=== PATIENT | male | born 1995 | race Caucasian/White ===

== ENCOUNTER 2016-12-16 01:37 | Inpatient (IN) | payer OTHER ==
[2016-12-16 01:56] LABS: Glucose,Whole Blood 317 mg/dL (75-99)
[2016-12-16] MEDS ORDERED: SODIUM CHLORIDE 0.9% 1,000 ML IV STA ×5 (01:56→05:30)
[2016-12-16] MEDS ORDERED: ONDANSETRON 4 MG/2 ML VIAL IVP STA (01:56)
--- NOTE | 2016-12-16 01:56 | ED ---
Nausea/Vomiting/Diarrhea HPI - General Chief complaint: Nausea/Vomiting/Diarrhea Stated complaint: high blood sugar Time Seen by Provider: 12/16/16 01:45 Source: patient, RN notes reviewed Mode of arrival: ambulatory Limitations: no limitations - History of Present Illness Initial comments: This is a 20-year-old male with a history of insulin-dependent diabetes who states he had a blood sugar of 529 is prior to admission had dropped to 41 at 5 PM last 98 later took some insulin felt dizzy feels as nausea vomiting he also feels like he is a fever. He denies any cough rhinorrhea or other symptoms at this time. MD complaint: nausea, vomiting, other - Related Data Home Medications Medication Instructions Recorded Confirmed INSULIN LISPRO (For Pump) [humaLOG 2 units SQ-PUMP Q1H 12/16/16 12/16/16 (For Pump)] Allergies Allergy/AdvReac Type Severity Reaction Status Date / Time No Known Allergies Allergy Verified 09/12/16 21:09 Review of Systems ROS Statement: Those systems with pertinent positive or pertinent negative responses have been documented in the HPI. ROS Other: All systems not noted in ROS Statement are negative. Past Medical History Past Medical History: Diabetes Mellitus, Pneumonia Additional Past Medical History / Comment(s): patient states he had pneumonia when he was a baby History of Any Multi-Drug Resistant Organisms: None Reported Additional Past Surgical History / Comment(s): lymph node removed when patient was 5 y/o; wisdom teeth removal Past Anesthesia/Blood Transfusion Reactions: No Reported Reaction Past Psychological History: No Psychological Hx Reported Smoking Status: Former smoker Past Alcohol Use History: None Reported Past Drug Use History: None Reported - Past Family History Mother Family Medical History: Hypertension, Thyroid Disorder Additional Family Medical History / Comment(s): depression and anxiety General Exam - General Exam Comments Initial Comments: This is a well-developed well-nourished awake alert oriented times x3 male Limitations: no limitations General appearance: alert, in no apparent distress Head exam: Present: atraumatic, normocephalic, normal inspection Eye exam: Present: normal appearance, PERRL, EOMI. Absent: scleral icterus, conjunctival injection, periorbital swelling ENT exam: Present: mucous membranes dry Neck exam: Present: normal inspection. Absent: tenderness, meningismus, lymphadenopathy Respiratory exam: Present: normal lung sounds bilaterally. Absent: respiratory distress, wheezes, rales, rhonchi, stridor Cardiovascular Exam: Present: normal rhythm, tachycardia, normal heart sounds. Absent: systolic murmur, diastolic murmur, rubs, gallop, clicks GI/Abdominal exam: Present: soft, normal bowel sounds. Absent: distended, tenderness, guarding, rebound, rigid Extremities exam: Present: normal inspection, full ROM, normal capillary refill. Absent: tenderness, pedal edema, joint swelling, calf tenderness Back exam: Present: normal inspection Neurological exam: Present: alert, oriented X3, CN II-XII intact Psychiatric exam: Present: normal affect, normal mood Skin exam: Present: warm, dry, intact, normal color. Absent: rash Course Vital Signs 12/16/16 12/16/16 12/16/16 01:41 03:00 03:58 Temperature 101.5 F H 99.4 F Pulse Rate 127 H 111 H 112 H Respiratory 20 20 18 Rate Blood Pressure 126/68 123/64 123/69 O2 Sat by Pulse 97 99 99 Oximetry 12/16/16 04:46 Temperature 98.8 F Pulse Rate 105 H Respiratory 18 Rate Blood Pressure 110/57 O2 Sat by Pulse 98 Oximetry - Reevaluation(s) Reevaluation #1: 12/16/16 04:33 The patient is feeling better blood sugar has responded to IV fluids his insulin pump is being used to control sugar this time. The lactic acid is pending. X-rays are negative for acute findings the fever is likely secondary to a viral process. Reevaluation #2: 12/16/16 05:21 Repeat lactic acid was still elevated. I did reexamine the patient is awake alert oriented 3 vital signs are stable chest lungs are clear heart is regular capillary refills less than 2 seconds peripheral pulses are equal bilaterally radial. Skin is warm and dry with normal color. Reevaluation #3: 12/16/16 05:32 Patient wants to try to use his insulin pump to control her sugar distended does seem reasonable. Medical Decision Making - Medical Decision Making Due to the patient's clinical picture was does appear to be improved but the continued elevated lactic acid patient will be admitted for continued IV fluids - Lab Data Result diagrams: 12/16/16 01:55 12/16/16 01:55 Lab Results 02/07/17 02/07/17 02/07/17 Range/Units 01:54 01:55 01:55 WBC 15.1 H (4.0-11.0) k/uL RBC 7.62 H (4.30-5.90) m/uL Hgb 14.4 (13.0-17.5) gm/dL Hct 46.9 (39.0-53.0) % MCV 60.8 L (80.0-100.0) fL MCH 18.7 L (25.0-35.0) pg MCHC 30.8 L (31.0-37.0) g/dL RDW 14.7 (11.5-15.5) % Plt Count 305 (150-450) k/uL Neutrophils % 93 % Lymphocytes % 3 % Monocytes % 2 % Eosinophils % 2 % Basophils % 0 % Neutrophils # 14.0 H (1.3-7.7) k/uL Lymphocytes # 0.5 L (1.0-4.8) k/uL Monocytes # 0.3 (0-1.0) k/uL Eosinophils # 0.2 (0-0.7) k/uL Basophils # 0.0 (0-0.2) k/uL Hypochromasia Slight Microcytosis Marked Sodium 141 (137-145) mmol/L Potassium 4.4 (3.5-5.1) mmol/L Chloride 101 (98-107) mmol/L Carbon Dioxide 20 L (22-30) mmol/L Anion Gap 20 mmol/L BUN 13 (9-20) mg/dL Creatinine 0.70 (0.66-1.25) mg/dL Est GFR (MDRD) Af Amer >60 (>60 ml/min/1.73 sqM) Est GFR (MDRD) Non-Af >60 (>60 ml/min/1.73 sqM) Glucose 326 H (74-99) mg/dL POC Glucose (mg/dL) 317 H (75-99) mg/dL POC Glu Concrete Foreman ID AbranRaghavendra lu Plasma Lactic Acid Kody (0.7-2.0) mmol/L Calcium 9.8 (8.4-10.2) mg/dL Total Bilirubin 2.1 H (0.2-1.3) mg/dL AST 39 (17-59) U/L ALT 24 (21-72) U/L Alkaline Phosphatase 88 (38-126) U/L Total Protein 7.8 (6.3-8.2) g/dL Albumin 4.6 (3.5-5.0) g/dL Amylase 41 (30-110) U/L Lipase <10 L (23-300) U/L Urine Color Urine Appearance (Clear) Urine pH (5.0-8.0) Ur Specific [place] (1.001-1.035) Urine Protein (Negative) Urine Glucose (UA) (Negative) Urine Ketones (Negative) Urine Blood (Negative) Urine Nitrate (Negative) Urine Bilirubin (Negative) Urine Urobilinogen (<2.0) mg/dL Ur Leukocyte Esterase (Negative) Influenza Type A RNA (Not Detectd) Influenza Type B (PCR) (Not Detectd) 12/16/16 12/16/16 12/16/16 Range/Units 01:55 01:55 02:07 WBC (4.0-11.0) k/uL RBC (4.30-5.90) m/uL Hgb (13.0-17.5) gm/dL Hct (39.0-53.0) % MCV (80.0-100.0) fL MCH (25.0-35.0) pg MCHC (31.0-37.0) g/dL RDW (11.5-15.5) % Plt Count (150-450) k/uL Neutrophils % % Lymphocytes % % Monocytes % % Eosinophils % % Basophils % % Neutrophils # (1.3-7.7) k/uL Lymphocytes # (1.0-4.8) k/uL Monocytes # (0-1.0) k/uL Eosinophils # (0-0.7) k/uL Basophils # (0-0.2) k/uL Hypochromasia Microcytosis Sodium (137-145) mmol/L Potassium (3.5-5.1) mmol/L Chloride (98-107) mmol/L Carbon Dioxide (22-30) mmol/L Anion Gap mmol/L BUN (9-20) mg/dL Creatinine (0.66-1.25) mg/dL Est GFR (MDRD) Af Amer (>60 ml/min/1.73 sqM) Est GFR (MDRD) Non-Af (>60 ml/min/1.73 sqM) Glucose (74-99) mg/dL POC Glucose (mg/dL) (75-99) mg/dL POC Glu Concrete Foreman ID Plasma Lactic Acid Kody 5.7 H* (0.7-2.0) mmol/L Calcium (8.4-10.2) mg/dL Total Bilirubin (0.2-1.3) mg/dL AST (17-59) U/L ALT (21-72) U/L Alkaline Phosphatase (38-126) U/L Total Protein (6.3-8.2) g/dL Albumin (3.5-5.0) g/dL Amylase (30-110) U/L Lipase (23-300) U/L Urine Color Light Yellow Urine Appearance Clear (Clear) Urine pH 5.5 (5.0-8.0) Ur Specific [place] 1.029 (1.001-1.035) Urine Protein Negative (Negative) Urine Glucose (UA) 4+ H (Negative) Urine Ketones 3+ H (Negative) Urine Blood Negative (Negative) Urine Nitrate Negative (Negative) Urine Bilirubin Negative (Negative) Urine Urobilinogen <2.0 (<2.0) mg/dL Ur Leukocyte Esterase Negative (Negative) Influenza Type A RNA Not Detected (Not Detectd) Influenza Type B (PCR) Not Detected (Not Detectd) 12/16/16 12/16/16 12/16/16 Range/Units 02:45 03:57 04:35 WBC (4.0-11.0) k/uL RBC (4.30-5.90) m/uL Hgb (13.0-17.5) gm/dL Hct (39.0-53.0) % MCV (80.0-100.0) fL MCH (25.0-35.0) pg MCHC (31.0-37.0) g/dL RDW (11.5-15.5) % Plt Count (150-450) k/uL Neutrophils % % Lymphocytes % % Monocytes % % Eosinophils % % Basophils % % Neutrophils # (1.3-7.7) k/uL Lymphocytes # (1.0-4.8) k/uL Monocytes # (0-1.0) k/uL Eosinophils # (0-0.7) k/uL Basophils # (0-0.2) k/uL Hypochromasia Microcytosis Sodium (137-145) mmol/L Potassium (3.5-5.1) mmol/L Chloride (98-107) mmol/L Carbon Dioxide (22-30) mmol/L Anion Gap mmol/L BUN (9-20) mg/dL Creatinine (0.66-1.25) mg/dL Est GFR (MDRD) Af Amer (>60 ml/min/1.73 sqM) Est GFR (MDRD) Non-Af (>60 ml/min/1.73 sqM) Glucose (74-99) mg/dL POC Glucose (mg/dL) 267 H 298 H (75-99) mg/dL POC Glu Concrete Foreman ID Raghavendra Munoz Stephanie Plasma Lactic Acid Kody 4.9 H* (0.7-2.0) mmol/L Calcium (8.4-10.2) mg/dL Total Bilirubin (0.2-1.3) mg/dL AST (17-59) U/L ALT (21-72) U/L Alkaline Phosphatase (38-126) U/L Total Protein (6.3-8.2) g/dL Albumin (3.5-5.0) g/dL Amylase (30-110) U/L Lipase (23-300) U/L Urine Color Urine Appearance (Clear) Urine pH (5.0-8.0) Ur Specific [place] (1.001-1.035) Urine Protein (Negative) Urine Glucose (UA) (Negative) Urine Ketones (Negative) Urine Blood (Negative) Urine Nitrate (Negative) Urine Bilirubin (Negative) Urine Urobilinogen (<2.0) mg/dL Ur Leukocyte Esterase (Negative) Influenza Type A RNA (Not Detectd) Influenza Type B (PCR) (Not Detectd) 12/16/16 Range/Units 04:39 WBC (4.0-11.0) k/uL RBC (4.30-5.90) m/uL Hgb (13.0-17.5) gm/dL Hct (39.0-53.0) % MCV (80.0-100.0) fL MCH (25.0-35.0) pg MCHC (31.0-37.0) g/dL RDW (11.5-15.5) % Plt Count (150-450) k/uL Neutrophils % % Lymphocytes % % Monocytes % % Eosinophils % % Basophils % % Neutrophils # (1.3-7.7) k/uL Lymphocytes # (1.0-4.8) k/uL Monocytes # (0-1.0) k/uL Eosinophils # (0-0.7) k/uL Basophils # (0-0.2) k/uL Hypochromasia Microcytosis Sodium (137-145) mmol/L Potassium (3.5-5.1) mmol/L Chloride (98-107) mmol/L Carbon Dioxide (22-30) mmol/L Anion Gap mmol/L BUN (9-20) mg/dL Creatinine (0.66-1.25) mg/dL Est GFR (MDRD) Af Amer (>60 ml/min/1.73 sqM) Est GFR (MDRD) Non-Af (>60 ml/min/1.73 sqM) Glucose (74-99) mg/dL POC Glucose (mg/dL) 238 H (75-99) mg/dL POC Glu Concrete Foreman ID Nayeli Tamez Plasma Lactic Acid Kody (0.7-2.0) mmol/L Calcium (8.4-10.2) mg/dL Total Bilirubin (0.2-1.3) mg/dL AST (17-59) U/L ALT (21-72) U/L Alkaline Phosphatase (38-126) U/L Total Protein (6.3-8.2) g/dL Albumin (3.5-5.0) g/dL Amylase (30-110) U/L Lipase (23-300) U/L Urine Color Urine Appearance (Clear) Urine pH (5.0-8.0) Ur Specific [place] (1.001-1.035) Urine Protein (Negative) Urine Glucose (UA) (Negative) Urine Ketones (Negative) Urine Blood (Negative) Urine Nitrate (Negative) Urine Bilirubin (Negative) Urine Urobilinogen (<2.0) mg/dL Ur Leukocyte Esterase (Negative) Influenza Type A RNA (Not Detectd) Influenza Type B (PCR) (Not Detectd) - Radiology Data Radiology results: report reviewed (X-ray show no acute findings.), image reviewed Disposition Clinical Impression: Uncontrolled diabetes mellitus, Sepsis, Fever of unknown origin (FUO), Leukocytosis, Diabetic ketoacidosis Disposition: ADMITTED IP TO THIS HOSP Condition: Stable Referrals: Radha Dale MD [Primary Care Provider] - 1-2 days
[2016-12-16 02:03] LABS: Basophils % (A) 0 %; CHCM 31.4; Eosinophils # (A) 0.2 k/uL (0-0.7); Eosinophils % (A) 2 %; HCT 46.9 % (39.0-53.0); HDW 2.96; HGB 14.4 gm/dL (13.0-17.5); Hypochromasia Slight; Luc # (Auto) 0.06; Luc % (Auto) 0; Lymphocytes # (A) 0.5 k/uL (1.0-4.8); Lymphocytes % (A) 3 %; MCH 18.7 pg (25.0-35.0); MCHC 30.8 g/dL (31.0-37.0); MCV 60.8 fL (80.0-100.0); Microcytosis Marked; Monocytes # (A) 0.3 k/uL (0-1.0); Monocytes % (A) 2 %; Neutrophils % (A) 93 %; RDW 14.7 % (11.5-15.5); WBC 15.1 k/uL (4.0-11.0); WBC (Perox) 15.15
[2016-12-16] MEDS ORDERED: ACETAMINOPHEN TAB 500 MG TAB PO STA (02:12)
[2016-12-16 02:17] LABS: Appearance,Urine Clear (Clear); Bilirubin,Urine Negative (Negative); Glucose,Urine (UA) 4+ (Negative); Leukocyte Esterase,Urine Negative (Negative); Nitrite,Urine Negative (Negative); PH, Urine 5.5 (5.0-8.0); Protein,Urine Negative (Negative); Specific Gravity,Urine 1.029 (1.001-1.035); UA Billing (MACRO vs. MICRO) CHEM; Urobilinogen,Urine <2.0 mg/dL (<2.0)
[2016-12-16 02:19] LABS: ALT 24 U/L (21-72); AST 39 U/L (17-59); Alkaline Phosphatase 88 U/L (38-126); Amylase 41 U/L (30-110); Anion Gap 20 mmol/L; Blood Urea Nitrogen 13 mg/dL (9-20); Calcium 9.8 mg/dL (8.4-10.2); Carbon Dioxide 20 mmol/L (22-30); Chloride 101 mmol/L (98-107); Glucose 326 mg/dL (74-99); Non-African American GFR(MDRD) >60 (>60 ml/min/1.73 sqM); Potassium 4.4 mmol/L (3.5-5.1); Sodium 141 mmol/L (137-145); Total Bilirubin 2.1 mg/dL (0.2-1.3); Total Protein 7.8 g/dL (6.3-8.2)
[2016-12-16 02:21] LABS: RBC 7.62 m/uL (4.30-5.90)
[2016-12-16 02:23] LABS: Ketones,Urine 3+ (Negative)
[2016-12-16] MEDS ORDERED: INSULIN REGULAR 100 UNIT/ML VIAL IV ONE (02:37)
--- NOTE | 2016-12-16 02:51 | XR ---
EXAMINATION TYPE: XR chest 2V DATE OF EXAM: 12/16/2016 2:45 AM COMPARISON: 12/09/2014 HISTORY: High blood sugar. Chest pain TECHNIQUE: Frontal and lateral views of the chest are obtained. FINDINGS: Heart and mediastinum are normal. Lungs are clear. Diaphragm is normal. Bony thorax and so ft tissues appear normal. IMPRESSION: Normal chest. No change.
--- NOTE | 2016-12-16 02:52 | XR ---
EXAMINATION TYPE: XR KUB DATE OF EXAM: 12/16/2016 2:45 AM COMPARISON: 09/10/2006 HISTORY: Abdominal pain TECHNIQUE: 2 views FINDINGS: Bowel gas pattern is normal. There is no sign of intestinal obstruction or pneumoperitoneum . Fecal pattern is normal. There is no sign of a mass. There are no pathologic calcifications over th e kidneys. Lung bases are clear. IMPRESSION: Nonacute abdomen. No adverse change compared to old exam.
[2016-12-16 03:08] LABS: Glucose,Whole Blood 267 mg/dL (75-99)
[2016-12-16 03:58] LABS: Glucose,Whole Blood 298 mg/dL (75-99)
[2016-12-16 04:41] LABS: Glucose,Whole Blood 238 mg/dL (75-99)
[2016-12-16 06:10] LABS: Glucose,Whole Blood 172 mg/dL (75-99)
[2016-12-16] MEDS: SODIUM CHLORIDE 0.9% 1,000 ML IV SCH ×3 (06:23→18:12)
[2016-12-16] MEDS: INSULIN LISPRO (For Pump) 100 UNIT/ML VIAL SQ-PUMP SCH ×9 (07:38→13:27)
[2016-12-16] MEDS: PANTOPRAZOLE 40 MG/10 ML VIAL IV SCH (08:36)
[2016-12-16] MEDS: INSULIN LISPRO (humaLOG) 300 UNIT/3 ML VIAL SQ SCH ×4 (08:46→23:04)
[2016-12-16 08:54] LABS: Basophils % (A) 0 %; CH 19.5; CHCM 31.8; Eosinophils # (A) 0.2 k/uL (0-0.7); Eosinophils % (A) 2 %; HCT 41.1 % (39.0-53.0); HDW 3.06; HGB 12.4 gm/dL (13.0-17.5); Hypochromasia Slight; Immature Gran Flag Slight; Luc # (Auto) 0.06; Luc % (Auto) 1; Lymphocytes # (A) 0.6 k/uL (1.0-4.8); Lymphocytes % (A) 6 %; MCH 18.6 pg (25.0-35.0); MCHC 30.1 g/dL (31.0-37.0); MCV 61.7 fL (80.0-100.0); Mean Platelet Volume 6.7; Microcytosis Marked; Monocytes # (A) 0.3 k/uL (0-1.0); Monocytes % (A) 3 %; Neutrophils % (A) 88 %; RBC 6.66 m/uL (4.30-5.90); RDW 15.2 % (11.5-15.5); WBC 10.1 k/uL (4.0-11.0)
[2016-12-16 08:58] LABS: Glucose,Whole Blood 172 mg/dL (75-99)
[2016-12-16 09:15] LABS: Manual Review Performed
[2016-12-16 09:16] LABS: Hemoglobin A1C 12.1 % (4.2-6.1)
[2016-12-16 11:59] LABS: Glucose,Whole Blood 125 mg/dL (75-99)
[2016-12-16 12:02] LABS: Potassium 4.2 mmol/L (3.5-5.1)
[2016-12-16] MEDS ORDERED: INSPUCOR MISCELLANE PRN (12:51)
[2016-12-16] MEDS ORDERED: INSULIN PUMP BASAL RATES 1 EACH MISC MISCELLANE PRN (12:51)
[2016-12-16] MEDS ORDERED: INSULIN LISPRO (humaLOG) 300 UNIT/3 ML VIAL SQ PRN (12:51)
[2016-12-16] MEDS ORDERED: INSULIN PUMP TARGET GLUCOSE 1 EACH MISC MISCELLANE PRN (12:51)
[2016-12-16] MEDS ORDERED: INSULIN PUMP ACTIVE INSULIN 1 EACH MISC MISCELLANE PRN (12:51)
[2016-12-16 14:00] VITALS: BMI 25.2
[2016-12-16 14:22] LABS: Glucose,Whole Blood 144 mg/dL (75-99)
[2016-12-16] MEDS ORDERED: ACETAMINOPHEN TAB 325 MG TAB PO PRN (15:20)
--- NOTE | 2016-12-16 16:30 | P.HPIM ---
History of Present Illness H&P Date: 12/16/16 20-year-old gentleman with type 1 diabetes currently on insulin pump comes in the hospital with complains of generalized fatigue. Patient apparently noted to have a low blood sugar around 40 the day prior to admission. Patient stopped his basal dose of insulin on the pump. Patient thereafter has dinner however was not feeling his usual self and hence came in to the hospital. Patient was noted to have a low glucose level in the 400s initially. Patient was also incidentally noted to have a fever of 101.1 denies having any recent exposure to sick contacts. In the ER a chest and abdominal x-ray were negative for any acute processes. CBC did not reveal any elevated white count. During the time of my examination. Patient is symptom-free. States that he does not have any complaints at this time. Denies any chest pain, nausea, vomiting, diarrhea. His only complaint is just generalized weakness. Influenza PCR has been negative on this admission. pt was noted to have elevated lactic acid incidentally at 5.9 which is improved since then. However patient denies having any abdominal complaints. Review of Systems All systems: negative (Noted in HPI) Past Medical History Past Medical History: Diabetes Mellitus, Pneumonia Additional Past Medical History / Comment(s): IDDM type I-insulin pump, DKA, pt states he is going to be worked up for possible thyroid problem, pneumonia as an infant. History of Any Multi-Drug Resistant Organisms: None Reported Additional Past Surgical History / Comment(s): R neck lymph node removed when patient was 5 y/o; wisdom teeth removal Past Anesthesia/Blood Transfusion Reactions: No Reported Reaction Past Psychological History: No Psychological Hx Reported Additional Psychological History / Comment(s): Pt resides with his girlfriend and 2 month old son. He is independent. Smoking Status: Never smoker Past Alcohol Use History: Rare Past Drug Use History: None Reported - Past Family History Father History Unknown: Yes Mother Family Medical History: Hypertension, Thyroid Disorder Additional Family Medical History / Comment(s): depression and anxiety Medications and Allergies Home Medications Medication Instructions Recorded Confirmed Type INSULIN LISPRO (For Pump) [humaLOG 0.01 units SQ-PUMP CONTINUOUS 12/16/16 History (For Pump)] Allergies Allergy/AdvReac Type Severity Reaction Status Date / Time No Known Allergies Allergy Verified 12/16/16 07:33 Physical Exam Vitals: Vital Signs Temp Pulse Pulse Resp BP BP Pulse Ox 12/16/16 15:24 101 F H 119 H 16 120/57 97 12/16/16 12:00 99.2 F 95 16 120/62 98 12/16/16 08:27 99.4 F 103 H 16 103/57 98 12/16/16 06:01 98.4 F 101 H 18 114/65 98 Intake and Output 12/16/16 12/16/16 12/16/16 06:59 14:59 22:59 Intake Total 200 Balance 200 Intake: Oral 200 Other: # Voids 0 Weight 84.368 kg Patient Weight 12/17/16 06:59 Weight 84.368 kg Physical exam Gen. appearance oriented 3 in no distress Neck is supple no JVD Lungs good air entry clear to auscultation no rhonchi or wheezing Heart S1-S2 heard regular rate and rhythm no murmurs appreciated Abdomen is soft nontender no organomegaly bowel sounds are intact Neurologically cranial nerves II-12 grossly intact no focal motor or sensory deficits noted Skin no abnormalities appreciated Results CBC & Chem 7: 12/16/16 08:44 12/16/16 11:32 Labs: Abnormal Lab Results - Last 24 Hours (Table) 12/16/16 12/16/16 12/16/16 Range/Units 06:09 08:44 08:56 RBC 6.66 H (4.30-5.90) m/uL Hgb 12.4 L (13.0-17.5) gm/dL MCV 61.7 L (80.0-100.0) fL MCH 18.6 L (25.0-35.0) pg MCHC 30.1 L (31.0-37.0) g/dL Neutrophils # 9.0 H (1.3-7.7) k/uL Lymphocytes # 0.6 L (1.0-4.8) k/uL POC Glucose (mg/dL) 172 H 172 H (75-99) mg/dL 12/16/16 12/16/16 Range/Units 11:56 14:20 RBC (4.30-5.90) m/uL Hgb (13.0-17.5) gm/dL MCV (80.0-100.0) fL MCH (25.0-35.0) pg MCHC (31.0-37.0) g/dL Neutrophils # (1.3-7.7) k/uL Lymphocytes # (1.0-4.8) k/uL POC Glucose (mg/dL) 125 H 144 H (75-99) mg/dL Thrombosis Risk Factor Assmnt - Choose All That Apply Any of the Below Risk Factors Present?: Yes Each Factor Represents 1 point: Obesity (BMI >25) Other Risk Factors: No Other congenital or acquired thrombophilia - If yes, enter type in comment: No Thrombosis Risk Factor Assessment Total Risk Factor Score: 1 Thrombosis Risk Factor Assessment Level: Low Risk Assessment and Plan Plan: #1 sepsis unknown etiology #2 diabetes mellitus type 1 Plan Patient has been probably volume resuscitated. Testing including influenza and heterophile antibody are negative. Patient will be monitored for another 24 hours patient is to continue his basal insulin rate of 1.6 units per hour. Patient does carb count with 1 unit for every 27 g. Patient's A1c is high however states that he was out of his insulin supplies until 3-4 weeks ago. 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 Improved. Patient will be maintained on Rocephin however I do not see any infectious etiology at this time. Etiology of lactic acidosis undetermined patient does not appear to have any bowel necrosis. In all likelihood it could be severe dehydration from a viral illness.
[2016-12-16 17:02] LABS: Glucose,Whole Blood 197 mg/dL (75-99)
[2016-12-16] MEDS: INSULIN PUMP MEAL BOLUS 1 UNIT MISC MISCELLANE SCH (18:12)
[2016-12-16] MEDS ORDERED: IBUPROFEN 600 MG TAB PO PRN (20:52)
[2016-12-16] MEDS ORDERED: HYDROcodone/APAP 5-325MG 1 EACH TAB PO PRN (20:53)
[2016-12-16 21:03] LABS: Glucose,Whole Blood 93 mg/dL (75-99)
[2016-12-17] MEDS: SODIUM CHLORIDE 0.9% 1,000 ML IV SCH ×3 (00:21→16:10)
[2016-12-17] MEDS: INSULIN PUMP MEAL BOLUS 1 UNIT MISC MISCELLANE SCH ×4 (02:00→12:39)
[2016-12-17 02:09] LABS: Glucose,Whole Blood 266 mg/dL (75-99)
[2016-12-17 04:25] LABS: Glucose,Whole Blood 316 mg/dL (75-99)
[2016-12-17 06:23] LABS: Glucose,Whole Blood 247 mg/dL (75-99)
[2016-12-17 06:58] LABS: Basophils % (A) 0 %; CH 18.8; Eosinophils # (A) 0.3 k/uL (0-0.7); Eosinophils % (A) 4 %; HCT 42.7 % (39.0-53.0); HDW 2.96; HGB 12.5 gm/dL (13.0-17.5); Hypochromasia Marked; Luc # (Auto) 0.22; Luc % (Auto) 3; Lymphocytes # (A) 1.7 k/uL (1.0-4.8); Lymphocytes % (A) 23 %; MCH 18.5 pg (25.0-35.0); MCHC 29.3 g/dL (31.0-37.0); Mean Platelet Volume 5.7; Microcytosis Marked; Monocytes # (A) 0.6 k/uL (0-1.0); Monocytes % (A) 8 %; Neutrophils # (A) 4.8 k/uL (1.3-7.7); Neutrophils % (A) 63 %; RBC 6.78 m/uL (4.30-5.90); WBC 7.6 k/uL (4.0-11.0); WBC (Perox) 8.41
[2016-12-17 07:29] LABS: ALT 28 U/L (21-72); AST 17 U/L (17-59); Alkaline Phosphatase 77 U/L (38-126); Anion Gap 7 mmol/L; Blood Urea Nitrogen 11 mg/dL (9-20); Calcium 8.4 mg/dL (8.4-10.2); Carbon Dioxide 25 mmol/L (22-30); Chloride 106 mmol/L (98-107); Glucose 273 mg/dL (74-99); Non-African American GFR(MDRD) >60 (>60 ml/min/1.73 sqM); Potassium 4.3 mmol/L (3.5-5.1); Sodium 138 mmol/L (137-145); Total Bilirubin 0.7 mg/dL (0.2-1.3); Total Protein 5.6 g/dL (6.3-8.2)
[2016-12-17] MEDS: INSULIN LISPRO (humaLOG) 300 UNIT/3 ML VIAL SQ SCH ×2 (07:40→13:19)
[2016-12-17] MEDS: PANTOPRAZOLE 40 MG/10 ML VIAL IV SCH (08:13)
[2016-12-17 12:01] LABS: Glucose,Whole Blood 180 mg/dL (75-99)
[2016-12-17 12:49] VITALS: BP 134/91; PULSE 83; RESP 16; TEMP 97
--- NOTE | 2016-12-17 17:02 | P.DS ---
Providers Date of admission: 12/16/16 05:34 Attending physician: Lyn Neves Primary care physician: Radha Dale [facility] Course: 20-year-old gentleman with type 1 diabetes currently on insulin pump comes in the hospital with complains of generalized fatigue. Patient apparently noted to have a low blood sugar around 40 the day prior to admission. Patient stopped his basal dose of insulin on the pump. Patient thereafter has dinner however was not feeling his usual self and hence came in to the hospital. Patient was noted to have a low glucose level in the 400s initially. Patient was also incidentally noted to have a fever of 101.1 denies having any recent exposure to sick contacts. In the ER a chest and abdominal x-ray were negative for any acute processes. CBC did not reveal any elevated white count. During the time of my examination. Patient is symptom-free. States that he does not have any complaints at this time. Denies any chest pain, nausea, vomiting, diarrhea. His only complaint is just generalized weakness. Influenza PCR has been negative on this admission. pt was noted to have elevated lactic acid incidentally at 5.9 which is improved since then. However patient denies having any abdominal complaints. Patient was given IV fluids. Patient was maintained on his home regimen of insulin pump with a home basal dose of 1.6 units per hour. Patient's repeat labs has improved significantly. #1 mild DKA likely secondary to viral syndrome with fever on admission. 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 Physical exam Gen. appearance oriented 3 in no distress Neck is supple no JVD Lungs good air entry clear to auscultation no rhonchi or wheezing Heart S1-S2 heard regular rate and rhythm no murmurs appreciated Abdomen is soft nontender no organomegaly bowel sounds are intact Neurologically cranial nerves II-12 grossly intact no focal motor or sensory deficits noted Skin no abnormalities appreciated Patient Condition at Discharge: Stable Plan - Discharge Summary Discharge Medication List INSULIN LISPRO (For Pump) [humaLOG (For Pump)] 0.01 units SQ-PUMP CONTINUOUS 05/25 [History] Follow up Appointment(s)/Referral(s): Radha Dale MD [Primary Care Provider] - 12/19/16 11:30 am Patient Instructions/Handouts: Sepsis (GEN)
[2016-12-17 17:08] LABS: Glucose,Whole Blood 147 mg/dL (75-99)
[2016-12-18] MEDS ORDERED: PANTOPRAZOLE 40 MG TABLET PO SCH (07:30)
== END 2016-12-17 18:04 | disposition home or self-care (01) | DRG 639 ==
LOC: EC 01:37 → 6SEL 05:34
PROVIDERS: ADMIT Internal Medicine; ATTEND Internal Medicine
DX: E10.10 Type 1 diabetes mellitus with ketoacidosis without coma (principal); E86.0 Dehydration; B34.9 Viral infection, unspecified; Z79.4 Long term (current) use of insulin; Z82.49 Family history of ischemic heart disease and other diseases of the circulatory system; Z87.891 Personal history of nicotine dependence; Z96.41 Presence of insulin pump (external) (internal)
CPT/HCPCS: 36415; 71020; 74000; 80051; 80053; 81003; 82009; 82150; 82533; 83036; 83605; 83690; 84443; 85025; 85379; 86308; 87040; 87086; 87502; 99285

== ENCOUNTER 2017-04-25 19:38 | Emergency (ER) | payer OTHER ==
[2017-04-25 19:46] VITALS: RESP 18
[2017-04-25 19:46] LABS: Glucose,Whole Blood 457 mg/dL (75-99)
[2017-04-25] MEDS ORDERED: SODIUM CHLORIDE 0.9% 1,000 ML IV STA (20:16)
--- NOTE | 2017-04-25 20:21 | ED ---
General Adult HPI - General Chief complaint: Recheck/Abnormal Lab/Rx Stated complaint: Hypoglycemia Time Seen by Provider: 04/25/17 20:11 Source: patient Mode of arrival: ambulatory Limitations: no limitations - History of Present Illness Initial comments: 21-year-old male history of insulin-dependent diabetes for 9 years currently on an insulin pump presents with elevated sugar to 519 and chest discomfort states it is more sharp pain began 2 days ago under the right arm today in the anterior chest no cough no phlegm no pressure in the chest no earache sore throat. His last A1c was quite high at 11. No history of retinopathy performed uropathy or renal problems. No history of asthma heart disease seizures stroke or other health issues - Related Data Home Medications Medication Instructions Recorded Confirmed INSULIN LISPRO (For Pump) [humaLOG 0.01 units SQ-PUMP CONTINUOUS 12/16/16 (For Pump)] Previous Rx's Medication Instructions Recorded Azithromycin [Zithromax] 500 mg PO DAILY #5 tab 04/25/17 Allergies Allergy/AdvReac Type Severity Reaction Status Date / Time No Known Allergies Allergy Verified 04/25/17 20:11 Review of Systems ROS Statement: Those systems with pertinent positive or pertinent negative responses have been documented in the HPI. ROS Other: All systems not noted in ROS Statement are negative. Constitutional: Reports: fever Eyes: Denies: eye pain ENT: Denies: ear pain, throat pain Respiratory: Denies: cough Cardiovascular: Denies: chest pain Endocrine: Denies: fatigue Gastrointestinal: Denies: abdominal pain, nausea, vomiting, diarrhea Genitourinary: Denies: urgency, dysuria, frequency Skin: Denies: rash Psychiatric: Denies: anxiety, depression Hematological/Lymphatic: Denies: easy bleeding, easy bruising Past Medical History Past Medical History: Diabetes Mellitus, Pneumonia Additional Past Medical History / Comment(s): IDDM type I-insulin pump, DKA, pt states he is going to be worked up for possible thyroid problem, pneumonia as an infant. History of Any Multi-Drug Resistant Organisms: None Reported Additional Past Surgical History / Comment(s): R neck lymph node removed when patient was 5 y/o; wisdom teeth removal Past Anesthesia/Blood Transfusion Reactions: No Reported Reaction Past Psychological History: No Psychological Hx Reported Smoking Status: Never smoker Past Alcohol Use History: Rare Past Drug Use History: None Reported - Past Family History Father History Unknown: Yes Mother Family Medical History: Hypertension, Thyroid Disorder Additional Family Medical History / Comment(s): depression and anxiety General Exam Limitations: no limitations General appearance: alert, in no apparent distress Head exam: Present: atraumatic Eye exam: Present: PERRL, EOMI ENT exam: Present: normal oropharynx, mucous membranes moist, TM's normal bilaterally Respiratory exam: Present: normal lung sounds bilaterally Cardiovascular Exam: Present: regular rate, normal heart sounds GI/Abdominal exam: Present: soft, normal bowel sounds Neurological exam: Present: alert, CN II-XII intact Psychiatric exam: Present: normal affect, normal mood Skin exam: Present: warm, dry Course Vital Signs 04/25/17 19:40 Temperature 100.9 F H Pulse Rate 112 H Respiratory 18 Rate Blood Pressure 136/83 O2 Sat by Pulse 97 Oximetry Medical Decision Making - Medical Decision Making Patient has a fever mildly elevated white white count of 12, some chest pain chest x-rays read by radiology as negative to me there looks like it might be a very early left infiltrate we'll treat as early pneumonia give Rocephin and sent home on Zithromax 500 mg for 5 days follow-up on Thursday with his doctor Carlos A Crouch and given extra 5 units via his pump for 378 blood sugar, he would recheck it in 2 hours. If he starts persistent vomiting can control the temperatures were stationed come back to ER. - Lab Data Result diagrams: 04/25/17 20:45 04/25/17 20:45 Lab Results 04/25/17 04/25/17 04/25/17 Range/Units 19:42 20:45 20:45 WBC 12.4 H (3.8-10.6) k/uL RBC 7.56 H (4.30-5.90) m/uL Hgb 14.7 (13.0-17.5) gm/dL Hct 44.6 (39.0-53.0) % MCV 59.0 L (80.0-100.0) fL MCH 19.5 L (25.0-35.0) pg MCHC 33.1 (31.0-37.0) g/dL RDW 14.0 (11.5-15.5) % Plt Count 247 (150-450) k/uL Neutrophils % 86 % Lymphocytes % 8 % Monocytes % 4 % Eosinophils % 1 % Basophils % 0 % Neutrophils # 10.6 H (1.3-7.7) k/uL Lymphocytes # 1.0 (1.0-4.8) k/uL Monocytes # 0.4 (0-1.0) k/uL Eosinophils # 0.2 (0-0.7) k/uL Basophils # 0.0 (0-0.2) k/uL Microcytosis Marked PT (9.0-12.0) sec INR (<1.1) APTT (22.0-30.0) sec Sodium 137 (137-145) mmol/L Potassium 4.2 (3.5-5.1) mmol/L Chloride 100 (98-107) mmol/L Carbon Dioxide 23 (22-30) mmol/L Anion Gap 14 mmol/L BUN 15 (9-20) mg/dL Creatinine 0.80 (0.66-1.25) mg/dL Est GFR (MDRD) Af Amer >60 (>60 ml/min/1.73 sqM) Est GFR (MDRD) Non-Af >60 (>60 ml/min/1.73 sqM) Glucose 378 H (74-99) mg/dL POC Glucose (mg/dL) 457 H (75-99) mg/dL POC Glu Artificial Limb Fitter ID Valerio Alexandre Calcium 10.1 (8.4-10.2) mg/dL Magnesium 1.7 (1.6-2.3) mg/dL Total Bilirubin 1.1 (0.2-1.3) mg/dL AST 19 (17-59) U/L ALT 37 (21-72) U/L Alkaline Phosphatase 101 (38-126) U/L Total Protein 7.4 (6.3-8.2) g/dL Albumin 4.3 (3.5-5.0) g/dL 04/25/17 Range/Units 20:45 WBC (3.8-10.6) k/uL RBC (4.30-5.90) m/uL Hgb (13.0-17.5) gm/dL Hct (39.0-53.0) % MCV (80.0-100.0) fL MCH (25.0-35.0) pg MCHC (31.0-37.0) g/dL RDW (11.5-15.5) % Plt Count (150-450) k/uL Neutrophils % % Lymphocytes % % Monocytes % % Eosinophils % % Basophils % % Neutrophils # (1.3-7.7) k/uL Lymphocytes # (1.0-4.8) k/uL Monocytes # (0-1.0) k/uL Eosinophils # (0-0.7) k/uL Basophils # (0-0.2) k/uL Microcytosis PT 10.6 (9.0-12.0) sec INR 1.1 (<1.1) APTT 24.0 (22.0-30.0) sec Sodium (137-145) mmol/L Potassium (3.5-5.1) mmol/L Chloride (98-107) mmol/L Carbon Dioxide (22-30) mmol/L Anion Gap mmol/L BUN (9-20) mg/dL Creatinine (0.66-1.25) mg/dL Est GFR (MDRD) Af Amer (>60 ml/min/1.73 sqM) Est GFR (MDRD) Non-Af (>60 ml/min/1.73 sqM) Glucose (74-99) mg/dL POC Glucose (mg/dL) (75-99) mg/dL POC Glu Artificial Limb Fitter ID Calcium (8.4-10.2) mg/dL Magnesium (1.6-2.3) mg/dL Total Bilirubin (0.2-1.3) mg/dL AST (17-59) U/L ALT (21-72) U/L Alkaline Phosphatase (38-126) U/L Total Protein (6.3-8.2) g/dL Albumin (3.5-5.0) g/dL - EKG Data -: EKG Interpreted by Me 04/25/17 20:57 EKG 04/25/20172038 ventricular rate 93 bpm, ID interval 128 ms, QRS duration 96 ms, QT interval 320 ms normal sinus rhythm with sinus arrhythmia normal ECG Disposition Clinical Impression: Fever, Pneumonia, Insulin dependent diabetes mellitus Disposition: HOME SELF-CARE Condition: Good Instructions: Pneumonia (ED) Prescriptions: Azithromycin [Zithromax] 500 mg PO DAILY #5 tab Referrals: Radha Dale MD [Primary Care Provider] - 1-2 days Time of Disposition: 21:40
[2017-04-25 20:58] LABS: Basophils % (A) 0 %; CH 19.3; CHCM 32.8; Eosinophils # (A) 0.2 k/uL (0-0.7); Eosinophils % (A) 1 %; HCT 44.6 % (39.0-53.0); HDW 3.06; HGB 14.7 gm/dL (13.0-17.5); Luc % (Auto) 1; Lymphocytes % (A) 8 %; MCH 19.5 pg (25.0-35.0); MCHC 33.1 g/dL (31.0-37.0); Microcytosis Marked; Monocytes # (A) 0.4 k/uL (0-1.0); Monocytes % (A) 4 %; Neutrophils # (A) 10.6 k/uL (1.3-7.7); Neutrophils % (A) 86 %; WBC 12.4 k/uL (3.8-10.6); WBC (Perox) 11.99
[2017-04-25 21:00] LABS: RBC 7.56 m/uL (4.30-5.90)
--- NOTE | 2017-04-25 21:06 | XR ---
EXAMINATION TYPE: XR chest 2V DATE OF EXAM: 04/25/2017 COMPARISON: 12/16/2016 HISTORY: Chest pain TECHNIQUE: Frontal and lateral views of the chest are obtained. FINDINGS: Heart and mediastinum are normal. Lungs are clear. Diaphragm is normal. Bony thorax appear s normal. IMPRESSION: Normal chest. No change.
[2017-04-25 21:08] LABS: ALT 37 U/L (21-72); AST 19 U/L (17-59); Alkaline Phosphatase 101 U/L (38-126); Anion Gap 14 mmol/L; Blood Urea Nitrogen 15 mg/dL (9-20); Calcium 10.1 mg/dL (8.4-10.2); Carbon Dioxide 23 mmol/L (22-30); Chloride 100 mmol/L (98-107); Glucose 378 mg/dL (74-99); INR 1.1 (<1.1); Magnesium 1.7 mg/dL (1.6-2.3); Non-African American GFR(MDRD) >60 (>60 ml/min/1.73 sqM); Potassium 4.2 mmol/L (3.5-5.1); Prothrombin Time 10.6 sec (9.0-12.0); Sodium 137 mmol/L (137-145); Total Bilirubin 1.1 mg/dL (0.2-1.3); Total Protein 7.4 g/dL (6.3-8.2)
[2017-04-25 21:18] LABS: Creatine Kinase 122 U/L (55-170)
[2017-04-25 21:31] LABS: Troponin I <0.012 ng/mL (0.000-0.034)
[2017-04-25 22:23] VITALS: BP 135/64; PULSE 88; TEMP 99.1
== END 2017-04-25 22:19 | disposition home or self-care (01) ==
LOC: EC 19:38
DX: E10.10 Type 1 diabetes mellitus with ketoacidosis without coma (principal); J18.9 Pneumonia, unspecified organism; R07.89 Other chest pain; Z79.4 Long term (current) use of insulin
CPT/HCPCS: 99285; 96365; 96361; 36415; 93005; 80053; 82550; 82553; 83735; 84484; 85025; 85610; 85730; 87040; 71020; J0696

== ENCOUNTER 2017-04-28 19:45 | Emergency (ER) | payer OTHER ==
[2017-04-28 20:11] VITALS: BP 141/79; PULSE 80; RESP 17; TEMP 97.4
--- NOTE | 2017-04-28 20:25 | XR ---
EXAMINATION TYPE: XR chest 2V DATE OF EXAM: 04/28/2017 COMPARISON: 04/25/2017 HISTORY: Cough and congestion TECHNIQUE: Frontal and lateral views of the chest are obtained. FINDINGS: Heart and mediastinum are normal. Lungs are clear. Diaphragm is normal. There are chest le ads. Bony thorax appears normal. IMPRESSION: Normal chest. No change.
--- NOTE | 2017-04-28 20:40 | ED ---
General Adult HPI - General Chief complaint: Upper Respiratory Infection Stated complaint: Chest pain Time Seen by Provider: 04/28/17 19:59 Source: patient, family, RN notes reviewed, old records reviewed Mode of arrival: ambulatory Limitations: no limitations - History of Present Illness Initial comments: chief complaint and history of present illness this is a 21-year-old male here with his . Patient reports after work he coughed hard enough to cause discomfort to his anterior chest wall. At this time coughing has stopped. Twisting and turning and putting pressure on his anterior chest wall does increase the same discomfort. - Related Data Home Medications Medication Instructions Recorded Confirmed INSULIN LISPRO (For Pump) [humaLOG 0.01 units SQ-PUMP CONTINUOUS 12/16/16 (For Pump)] Previous Rx's Medication Instructions Recorded Azithromycin [Zithromax] 500 mg PO DAILY #5 tab 04/25/17 Ibuprofen [Motrin] 600 mg PO Q6HR PRN #20 tab 04/28/17 Allergies Allergy/AdvReac Type Severity Reaction Status Date / Time No Known Allergies Allergy Verified 04/28/17 19:53 Review of Systems ROS Statement: Those systems with pertinent positive or pertinent negative responses have been documented in the HPI. review of systems no headache or visual acuity chest pain is musculoskeletal reproducible by twisting turning palpation and deep breath or coughing. No abdominal pain no nausea no vomiting no neuro deficits. All systems were reviewed. Past medical problems significant for insulin-dependent diabetes mellitus, pneumonia, surgery right neck lymph node removal. Family history noncontributory. No known ALLERGIES. Nonsmoker rarely drinks alcohol. Denies drug use. ROS Other: All systems not noted in ROS Statement are negative. Past Medical History Past Medical History: Diabetes Mellitus, Pneumonia Additional Past Medical History / Comment(s): IDDM type I-insulin pump, DKA, pt states he is going to be worked up for possible thyroid problem, pneumonia as an infant. History of Any Multi-Drug Resistant Organisms: None Reported Additional Past Surgical History / Comment(s): R neck lymph node removed when patient was 5 y/o; wisdom teeth removal Past Anesthesia/Blood Transfusion Reactions: No Reported Reaction Past Psychological History: No Psychological Hx Reported Smoking Status: Never smoker Past Alcohol Use History: Rare Past Drug Use History: None Reported - Past Family History Father History Unknown: Yes Mother Family Medical History: Hypertension, Thyroid Disorder Additional Family Medical History / Comment(s): depression and anxiety General Exam - General Exam Comments Initial Comments: General: The patient is awake and alert, in no distress, and does not appear acutely ill. patient's chief complaint was chest pain with frequent coughing the coughing has since stopped for the past 2030 minutes. His discomfort to his chest is reproducible with taking a deep breath or pushing on his chest wall. No shortness of breath this time. Vital signs shows temperature 97.3 pulse 89 respiratory rate 18 pulse ox 99% room air blood pressure 142/87 Eye: Pupils are equal, round and reactive to light, extra-ocular movements are intact ; there is normal conjunctiva bilaterally. No signs of icterus. Ears, nose, mouth and throat: There are moist mucous membranes and no oral lesions. Neck: The neck is supple, there is no tenderness . Cardiovascular: There is a regular rate and rhythm. No murmur, rub or gallop is appreciated. Respiratory: Lungs are clear to auscultation, respirations are non-labored, breath sounds are equal. No wheezes, stridor, rales, or rhonchi.discomfort to his chest wall can be reproduced by taking a deep breath coughing or pushing on the chest wall. Gastrointestinal: Soft, non-distended, non-tender abdomen without masses or organomegaly noted. There is no rebound or guarding present. No CVA tenderness. Bowel sounds are unremarkable. Back: There is no tenderness to palpation in the midline. There is no obvious deformity. No rashes noted. Musculoskeletal: Normal ROM, no tenderness, There is no pedal edema. There is no calf tenderness or swelling. Sensation intact. +. Neurological: no neuro deficits complained of. Skin: Skin is warm and dry and no rashes or lesions are noted. Limitations: no limitations Course Vital Signs 04/28/17 04/28/17 04/28/17 19:50 20:08 20:10 Temperature 97.3 F L 97.4 F L Pulse Rate 89 80 Respiratory 18 18 17 Rate Blood Pressure 142/87 141/79 O2 Sat by Pulse 99 Oximetry Medical Decision Making - Medical Decision Making Medical decision making; chest x-ray done AP and lateral of the chest was done and reviewed by radiologist. His impression is; heart and mediastinum are normal. Lungs are clear. Diaphragm is normal. There are chest leads. Bony thorax appears normal. Impression normal chest. No change. As read by Dr. Velazquez we discussed costochondritis. Patient will be placed on ibuprofen for discomfort. Told to follow with family physician. Disposition Clinical Impression: Costochondritis, acute Disposition: HOME SELF-CARE Condition: Stable Instructions: Costochondritis (ED) Additional Instructions: Use ibuprofen every 6 hours for the pain. Minimize coughing. Increase fluids follow-up family physician Prescriptions: Ibuprofen [Motrin] 600 mg PO Q6HR PRN #20 tab PRN Reason: Pain Referrals: Radha Dale MD [Primary Care Provider] - 1-2 days Time of Disposition: 20:40
== END 2017-04-28 20:48 | disposition home or self-care (01) ==
LOC: EC 19:45
DX: M94.0 Chondrocostal junction syndrome [Tietze] (principal); E10.10 Type 1 diabetes mellitus with ketoacidosis without coma; Z79.4 Long term (current) use of insulin
CPT/HCPCS: 71020; 99284

== ENCOUNTER 2018-04-23 21:13 | Inpatient (IN) | payer BC, OTHER ==
[2018-04-23] MEDS ORDERED: SODIUM CHLORIDE 0.9% 2,000 ML IV STA (21:32)
--- NOTE | 2018-04-23 21:35 | ED ---
General Adult HPI - General Chief complaint: Recheck/Abnormal Lab/Rx Stated complaint: Hyperglycemia Time Seen by Provider: 04/23/18 21:20 Source: patient, RN notes reviewed Mode of arrival: ambulatory Limitations: no limitations - History of Present Illness Initial comments: This is a 22-year-old male who comes in with a past medical history significant for diabetes. Patient states he believes her sugar is high. Patient does not have any strips for his Accu-Cheks is unable to get a numerical value. Patient states he just feels as though his sugars high because this happened multiple times in the past. Patient states he has been out of his insulin for a few days he was supposed to get some from his doctor but he did not make the appointment. Patient states he feels tired and achy all over he feels as though his mouth is been increasingly dry. Patient states also been urinating quite a bit. Patient denies any fever chills or cough. Patient denies any chest pain difficulty breathing or shortness of breath. Patient states she's been dry heaving but no vomiting. Patient denies any diarrhea. Patient denies any lightheadedness dizziness or near syncopal episode. - Related Data Home Medications Medication Instructions Recorded Confirmed INSULIN LISPRO (For Pump) [humaLOG 0.01 units SQ-PUMP CONTINUOUS 12/16/16 (For Pump)] Previous Rx's Medication Instructions Recorded Azithromycin [Zithromax] 500 mg PO DAILY #5 tab 04/25/17 Ibuprofen [Motrin] 600 mg PO Q6HR PRN #20 tab 04/28/17 Allergies Allergy/AdvReac Type Severity Reaction Status Date / Time No Known Allergies Allergy Verified 04/23/18 21:22 Review of Systems ROS Statement: Those systems with pertinent positive or pertinent negative responses have been documented in the HPI. ROS Other: All systems not noted in ROS Statement are negative. Past Medical History Past Medical History: Diabetes Mellitus, Pneumonia, Thyroid Disorder Additional Past Medical History / Comment(s): IDDM type I-insulin pump, DKA, pt states he is going to be worked up for possible thyroid problem, pneumonia as an infant. History of Any Multi-Drug Resistant Organisms: None Reported Additional Past Surgical History / Comment(s): R neck lymph node removed when patient was 5 y/o; wisdom teeth removal Past Anesthesia/Blood Transfusion Reactions: No Reported Reaction Past Psychological History: No Psychological Hx Reported Smoking Status: Never smoker Past Alcohol Use History: Rare Past Drug Use History: None Reported - Past Family History Father History Unknown: Yes Mother Family Medical History: Hypertension, Thyroid Disorder Additional Family Medical History / Comment(s): depression and anxiety General Exam - General Exam Comments Initial Comments: GENERAL: Patient is well-developed and well-nourished. Patient is nontoxic and well- hydrated and is in moderate distress. ENT: Neck is soft and supple. No significant lymphadenopathy is noted. Oropharynx is clear. Dry mucous membranes. Neck has full range of motion without eliciting any pain. EYES: The sclera were anicteric and conjunctiva were pink and moist. Extraocular movements were intact and pupils were equal round and reactive to light. Eyelids were unremarkable. PULMONARY: Unlabored respirations. Good breath sounds bilaterally. No audible rales rhonchi or wheezing was noted. CARDIOVASCULAR: There is a regular rate and rhythm without any murmurs gallops or rubs. ABDOMEN: Soft and nontender with normal bowel sounds. SKIN: Skin is clear with no lesions or rashes and otherwise unremarkable. NEUROLOGIC: Patient is alert and oriented x3. Cranial nerves II through XII are grossly intact. Motor and sensory are also intact. Normal speech, volume and content. Symmetrical smile. MUSCULOSKELETAL: Normal extremities with adequate strength and full range of motion. LYMPHATICS: No significant lymphadenopathy is noted PSYCHIATRIC: Normal psychiatric evaluation. Normal interpersonal interactions appears functionally intact in deals appropriately with others. No signs of depression. No signs of anxiety. Limitations: no limitations Course Vital Signs 04/23/18 04/23/18 21:20 22:04 Temperature 98.3 F 98.3 F Pulse Rate 91 87 Respiratory 16 18 Rate Blood Pressure 147/94 137/63 O2 Sat by Pulse 98 98 Oximetry Medical Decision Making - Medical Decision Making Patient's sugar was over 600 and Accu-Chek. I started the patient on an insulin drip as well as insulin bolus. Patient also got 2 L of fluid immediately. I spoke with the [facility] agreed to admit the patient admitted the patient wrote admitting orders - Lab Data Result diagrams: 04/23/18 21:48 Lab Results 04/23/18 04/23/18 04/23/18 Range/Units 21:34 21:48 21:48 WBC 5.9 (3.8-10.6) k/uL RBC 6.45 H (4.30-5.90) m/uL Hgb 12.1 L (13.0-17.5) gm/dL Hct 39.4 (39.0-53.0) % MCV 61.1 L (80.0-100.0) fL MCH 18.8 L (25.0-35.0) pg MCHC 30.8 L (31.0-37.0) g/dL RDW 14.8 (11.5-15.5) % Plt Count 273 (150-450) k/uL Neutrophils % 53 % Lymphocytes % 36 % Monocytes % 5 % Eosinophils % 2 % Basophils % 1 % Neutrophils # 3.2 (1.3-7.7) k/uL Lymphocytes # 2.1 (1.0-4.8) k/uL Monocytes # 0.3 (0-1.0) k/uL Eosinophils # 0.1 (0-0.7) k/uL Basophils # 0.0 (0-0.2) k/uL Hypochromasia Moderate Microcytosis Marked POC Glucose (mg/dL) >600 H (75-99) mg/dL POC Glu [employer] Signal [employer] Operator ID Zoila Mckeon Acetone, Qual Negative (Negative) Disposition Clinical Impression: Uncontrolled diabetes mellitus Disposition: ADMITTED IP TO THIS HOSP Referrals: Radha Dale MD [Primary Care Provider] - 1-2 days Time of Disposition: 22:22
[2018-04-23 21:36] LABS: Glucose,Whole Blood >600 mg/dL (75-99)
[2018-04-23] MEDS ORDERED: INSULIN REGULAR 100 UNIT/ML VIAL IV STA (21:37)
[2018-04-23 21:59] LABS: Basophils % (A) 1 %; Eosinophils # (A) 0.1 k/uL (0-0.7); Eosinophils % (A) 2 %; HCT 39.4 % (39.0-53.0); HGB 12.1 gm/dL (13.0-17.5); Hypochromasia Moderate; Lymphocytes # (A) 2.1 k/uL (1.0-4.8); Lymphocytes % (A) 36 %; MCH 18.8 pg (25.0-35.0); MCHC 30.8 g/dL (31.0-37.0); MCV 61.1 fL (80.0-100.0); Mean Platelet Volume 6.6; Microcytosis Marked; Monocytes # (A) 0.3 k/uL (0-1.0); Monocytes % (A) 5 %; Neutrophils # (A) 3.2 k/uL (1.3-7.7); Neutrophils % (A) 53 %; Platelet Count 273 k/uL (150-450); RBC 6.45 m/uL (4.30-5.90); RDW 14.8 % (11.5-15.5); WBC 5.9 k/uL (3.8-10.6)
[2018-04-23] MEDS: INSULIN REGULAR 100 UNIT in SODIUM CHLORIDE 0.9% 100 ML IV ONE ×2 (22:00→23:40)
[2018-04-23 22:25] LABS: ALT 42 U/L (21-72); AST 33 U/L (17-59); Albumin 3.7 g/dL (3.5-5.0); Alkaline Phosphatase 138 U/L (38-126); Amylase 48 U/L (30-110); Anion Gap 11 mmol/L; Blood Urea Nitrogen 12 mg/dL (9-20); Calcium 9.1 mg/dL (8.4-10.2); Carbon Dioxide 24 mmol/L (22-30); Chloride 96 mmol/L (98-107); Lipase 15 U/L (23-300); Potassium 5.5 mmol/L (3.5-5.1); Sodium 131 mmol/L (137-145); Total Bilirubin 0.5 mg/dL (0.2-1.3); Total Protein 6.2 g/dL (6.3-8.2)
[2018-04-23 22:37] LABS: Glucose 867 mg/dL (74-99)
[2018-04-23 22:49] LABS: Glucose,Whole Blood 552 mg/dL (75-99)
[2018-04-23] MEDS: SODIUM CHLORIDE 0.9% 1,000 ML IV SCH (23:26)
[2018-04-23 23:36] LABS: Glucose,Whole Blood 447 mg/dL (75-99)
[2018-04-23] MEDS: INSULIN REGULAR 100 UNIT in SODIUM CHLORIDE 0.9% 100 ML IV SCH ×2 (23:53→23:54)
[2018-04-24 00:12] LABS: Glucose,Whole Blood 320 mg/dL (75-99)
[2018-04-24 01:07] LABS: Glucose,Whole Blood 172 mg/dL (75-99)
[2018-04-24 01:51] LABS: Glucose,Whole Blood 95 mg/dL (75-99)
[2018-04-24 02:27] LABS: Anion Gap 8 mmol/L; Blood Urea Nitrogen 10 mg/dL (9-20); Carbon Dioxide 25 mmol/L (22-30); Chloride 108 mmol/L (98-107); Glucose 88 mg/dL (74-99); Phosphorus 2.5 mg/dL (2.5-4.5); Potassium 4.2 mmol/L (3.5-5.1); Sodium 141 mmol/L (137-145)
[2018-04-24 03:01] LABS: Glucose,Whole Blood 113 mg/dL (75-99)
[2018-04-24] MEDS: INSULIN REGULAR 100 UNIT in SODIUM CHLORIDE 0.9% 100 ML IV SCH (04:56)
[2018-04-24 05:00] LABS: Glucose,Whole Blood 186 mg/dL (75-99)
[2018-04-24] MEDS: SODIUM CHLORIDE 0.9% 1,000 ML IV SCH (06:13)
[2018-04-24 06:15] LABS: Glucose,Whole Blood 139 mg/dL (75-99)
[2018-04-24 07:12] LABS: Glucose,Whole Blood 121 mg/dL (75-99)
[2018-04-24 07:23] LABS: Anion Gap 9 mmol/L; Blood Urea Nitrogen 10 mg/dL (9-20); Carbon Dioxide 25 mmol/L (22-30); Chloride 110 mmol/L (98-107); Glucose 121 mg/dL (74-99); Phosphorus 3.4 mg/dL (2.5-4.5); Potassium 4.2 mmol/L (3.5-5.1); Sodium 144 mmol/L (137-145)
[2018-04-24 07:37] VITALS: BP 125/75; PULSE 78; RESP 19; TEMP 97.1
[2018-04-24 08:11] LABS: Glucose,Whole Blood 244 mg/dL (75-99)
[2018-04-24] MEDS: INSULIN ASPART 100 UNIT/ML 1 ML 10 ML VIAL SQ SCH ×2 (08:49→13:07)
[2018-04-24 10:56] VITALS: BMI 25.6
[2018-04-24] MEDS ORDERED: INSULIN ASPART 100 UNIT/ML 1 ML 10 ML VIAL SQ SCH (12:30)
[2018-04-24 12:50] LABS: Glucose,Whole Blood 160 mg/dL (75-99)
[2018-04-24] MEDS ORDERED: INSULIN DETEMIR 100 UNIT/ML 10 ML VIAL SQ SCH ×3 (15:00→21:00)
--- NOTE | 2018-04-24 16:46 | P.HPIM ---
History of Present Illness 80-year-old very pleasant gentleman came in with the complaints of polyuria polydipsia, found to be have highly elevated blood sugars of 800. Patient is a type I diabetic as per the patient does use insulin on regular basis, patient uses a very long-acting insulin along with the pre-meal insulin and does carb counting. Patient of insulin supposed to make an appointment and see a doctor was unable to do that because of which patient came in with symptoms of achy feeling dry mouth not feeling well tiredness. Patient is found to have highly elevated blood sugars and pseudohyponatremia secondary to hyperglycemia and multiple a left red abnormalities which Corrected with IV insulin. Although patient is not in diabetic ketoacidosis. Patient does not have any acetone in the urine does not have any anion gap in spite of not tarry taking insulin since and highly elevated blood sugars. Patient does not have any signs or symptoms of sepsis at this point of time. Patient is wishing to go home., Plan is to use indigent funds from the hospital and patient was given prescriptions of Lantus and aspart patient will be given a dose of Lantus here before his discharge and patient will continue to do the carb counting. Patient will be discharged on 50 units of Lantus, patient is using 75 units of ultra long-acting insulin at home. 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 Patient was asked to check his blood sugars with each meal and at that time and patient will follow with Dr. Radha Dale PCP on this Thursday morning Review of Systems REVIEW OF SYSTEMS: CONSTITUTIONAL: No fever, no malaise, no fatigue. HEENT: No recent visual problems or hearing problems. Denied any sore throat. CARDIOVASCULAR: No chest pain, orthopnea, PND, no palpitations, no syncope. PULMONARY: No shortness of breath, no cough, no hemoptysis. GASTROINTESTINAL: No diarrhea, no nausea, no vomiting, no abdominal pain. Normoactive bowel sounds. NEUROLOGICAL: No headaches, no weakness, no numbness. HEMATOLOGICAL: Denies any bleeding or petechiae. GENITOURINARY: Denies any burning micturition, frequency, or urgency. MUSCULOSKELETAL/RHEUMATOLOGICAL: Denies any joint pain, swelling, or any muscle pain. ENDOCRINE: As mentioned above The rest of the 14-point review of systems is negative. Past Medical History Past Medical History: Diabetes Mellitus, Pneumonia, Thyroid Disorder Additional Past Medical History / Comment(s): IDDM type I-insulin pump, DKA, pt states he is going to be worked up for possible thyroid problem, pneumonia as an . History of Any Multi-Drug Resistant Organisms: None Reported Additional Past Surgical History / Comment(s): R neck lymph node removed when patient was 5 y/o; wisdom teeth removal Past Anesthesia/Blood Transfusion Reactions: No Reported Reaction Past Psychological History: No Psychological Hx Reported Additional Psychological History / Comment(s): Pt resides with his girlfriend and 2 month old son. He is independent. Smoking Status: Never smoker Past Alcohol Use History: Rare Past Drug Use History: None Reported - Past Family History Father History Unknown: Yes Mother Family Medical History: Hypertension, Thyroid Disorder Additional Family Medical History / Comment(s): depression and anxiety Medications and Allergies Home Medications Medication Instructions Recorded Confirmed Type INSULIN LISPRO (HumaLOG) [humaLOG] See Protocol SQ ACHS #1 vial 04/24/18 Rx Insulin Glargine,Hum.rec.anlog 50 unit SQ HS #1 syr 04/24/18 Rx [Basaglar Kwikpen U-100] Allergies Allergy/AdvReac Type Severity Reaction Status Date / Time No Known Allergies Allergy Verified 04/23/18 22:32 Physical Exam Vitals: Vital Signs Temp Pulse Pulse Resp BP BP Pulse Ox 04/24/18 07:36 97.1 F L 78 19 125/75 99 04/23/18 23:44 97.5 F L 88 16 133/75 98 04/23/18 23:00 98.3 F 87 18 138/65 99 04/23/18 22:04 98.3 F 87 18 137/63 98 04/23/18 21:20 98.3 F 91 16 147/94 98 Intake and Output 04/24/18 04/24/18 04/24/18 06:59 14:59 22:59 Intake Total 977.609 1522 Balance 626.158 7324 Intake: IV 1000 Sodium Chloride 0.9% 1, 1000 000 ml @ 200 mls/hr IV . [facility]H [facility] Rx#:[id number] Intake, IV Titration 227.270 0 Amount Insulin Regular 100 unit 202 In Sodium Chloride 0.9% 100 ml @ 0.1 UNITS/KG/HR 8.65 mls/hr IV .[id number] [facility] Rx#:[id number] Insulin Regular 100 unit 25.270 0 In Sodium Chloride 0.9% 100 ml @ 8 UNIT/HR 8.08 mls/hr IV .[id number] Rx #:[id number] Oral 100 Other: # Voids 1 Weight 85.729 kg PHYSICAL EXAMINATION: GENERAL: The patient is alert and oriented x3, not in any acute distress. Well developed, well nourished. HEENT: Pupils are round and equally reacting to light. EOMI. No scleral icterus. No conjunctival pallor. Normocephalic, atraumatic. No pharyngeal erythema. No thyromegaly. CARDIOVASCULAR: S1 and S2 present. No murmurs, rubs, or gallops. PULMONARY: Chest is clear to auscultation, no wheezing or crackles. ABDOMEN: Soft, nontender, nondistended, normoactive bowel sounds. No palpable organomegaly. MUSCULOSKELETAL: No joint swelling or deformity. EXTREMITIES: No cyanosis, clubbing, or pedal edema. NEUROLOGICAL: Gross neurological examination did not reveal any focal deficits. SKIN: No rashes. Results CBC & Chem 7: 04/23/18 21:48 04/24/18 06:35 Labs: Abnormal Lab Results - Last 24 Hours (Table) 04/23/18 04/23/18 04/23/18 Range/Units 21:34 21:48 21:48 RBC 6.45 H (4.30-5.90) m/uL Hgb 12.1 L (13.0-17.5) gm/dL MCV 61.1 L (80.0-100.0) fL MCH 18.8 L (25.0-35.0) pg MCHC 30.8 L (31.0-37.0) g/dL Sodium 131 L (137-145) mmol/L Potassium 5.5 H (3.5-5.1) mmol/L Chloride 96 L (98-107) mmol/L Creatinine 0.60 L (0.66-1.25) mg/dL Glucose 867 H* (74-99) mg/dL POC Glucose (mg/dL) >600 H (75-99) mg/dL Alkaline Phosphatase 138 H (38-126) U/L Total Protein 6.2 L (6.3-8.2) g/dL Lipase 15 L (23-300) U/L 04/23/18 04/23/18 04/24/18 Range/Units 22:45 23:33 00:10 RBC (4.30-5.90) m/uL Hgb (13.0-17.5) gm/dL MCV (80.0-100.0) fL MCH (25.0-35.0) pg MCHC (31.0-37.0) g/dL Sodium (137-145) mmol/L Potassium (3.5-5.1) mmol/L Chloride (98-107) mmol/L Creatinine (0.66-1.25) mg/dL Glucose (74-99) mg/dL POC Glucose (mg/dL) 552 H 447 H 320 H (75-99) mg/dL Alkaline Phosphatase (38-126) U/L Total Protein (6.3-8.2) g/dL Lipase (23-300) U/L 04/24/18 04/24/18 04/24/18 Range/Units 00:47 01:46 02:49 RBC (4.30-5.90) m/uL Hgb (13.0-17.5) gm/dL MCV (80.0-100.0) fL MCH (25.0-35.0) pg MCHC (31.0-37.0) g/dL Sodium (137-145) mmol/L Potassium (3.5-5.1) mmol/L Chloride 108 H (98-107) mmol/L Creatinine 0.50 L (0.66-1.25) mg/dL Glucose (74-99) mg/dL POC Glucose (mg/dL) 172 H 113 H (75-99) mg/dL Alkaline Phosphatase (38-126) U/L Total Protein (6.3-8.2) g/dL Lipase (23-300) U/L 04/24/18 04/24/18 04/24/18 Range/Units 04:56 06:10 06:35 RBC (4.30-5.90) m/uL Hgb (13.0-17.5) gm/dL MCV (80.0-100.0) fL MCH (25.0-35.0) pg MCHC (31.0-37.0) g/dL Sodium (137-145) mmol/L Potassium (3.5-5.1) mmol/L Chloride 110 H (98-107) mmol/L Creatinine 0.51 L (0.66-1.25) mg/dL Glucose 121 H (74-99) mg/dL POC Glucose (mg/dL) 186 H 139 H (75-99) mg/dL Alkaline Phosphatase (38-126) U/L Total Protein (6.3-8.2) g/dL Lipase (23-300) U/L 04/24/18 04/24/18 04/24/18 Range/Units 07:01 08:08 12:27 RBC (4.30-5.90) m/uL Hgb (13.0-17.5) gm/dL MCV (80.0-100.0) fL MCH (25.0-35.0) pg MCHC (31.0-37.0) g/dL Sodium (137-145) mmol/L Potassium (3.5-5.1) mmol/L Chloride (98-107) mmol/L Creatinine (0.66-1.25) mg/dL Glucose (74-99) mg/dL POC Glucose (mg/dL) 121 H 244 H 160 H (75-99) mg/dL Alkaline Phosphatase (38-126) U/L Total Protein (6.3-8.2) g/dL Lipase (23-300) U/L Thrombosis Risk Factor Assmnt - Choose All That Apply Any of the Below Risk Factors Present?: No Other Risk Factors: No Other congenital or acquired thrombophilia - If yes, enter type in comment: No Thrombosis Risk Factor Assessment Level: Very Low Risk Assessment and Plan Plan: Severe hyperglycemia without any diabetic ketoacidosis or hyperosmolar state: Secondary to noncompliance with insulin. Patient is being discharged today with the above-mentioned management -Hyperkalemia: Secondary to hyperglycemia -Hyponatremia: Pseudohyponatremia secondary to highly elevated blood sugars with a competent of intravascular depletion and hypovolemic hyponatremia Fortune- type 2 diabetes mellitus as per the patient's history although patient did not have any significant ketoacidosis in spite of such to highly elevated blood sugars -Dehydration intravascular depletion resolved now.
--- NOTE | 2018-04-24 16:47 | P.DS ---
Providers Date of admission: 04/23/18 22:22 Attending physician: Mg Salas Primary care physician: Radha Dale Hospital Course: Please refer to my HPI Plan - Discharge Summary Discharge Rx Participant: No New Discharge Prescriptions: New Insulin Glargine,Hum.rec.anlog [Basaglar Kwikpen U-100] 50 unit SQ HS #1 syr INSULIN LISPRO (HumaLOG) [humaLOG] See Protocol SQ ACHS #1 vial Discontinued Insulin Aspart (Niacinamide) [Fiasp 100 Unit/ml Flextouch] See Protocol SQ AC -TID Insulin Degludec [Tresiba Flextouch U-200] 75 unit SQ DAILY Discharge Medication List INSULIN LISPRO (HumaLOG) [humaLOG] See Protocol SQ ACHS #1 vial 04/24/18 [Rx] Insulin Glargine,Hum.rec.anlog [Basaglar Kwikpen U-100] 50 unit SQ HS #1 syr [Rx] Follow up Appointment(s)/Referral(s): Radha Dale MD [Primary Care Provider] - 1-2 days Patient Instructions/Handouts: Diabetes in the Older Adult (DC) Discharge Disposition: HOME SELF-CARE
== END 2018-04-24 14:40 | disposition home or self-care (01) | DRG 638 ==
LOC: EC 21:13 → 4MS4W 22:22
PROVIDERS: ADMIT Hospitalist; ATTEND Hospitalist
DX: E10.65 Type 1 diabetes mellitus with hyperglycemia (principal); E87.1 Hypo-osmolality and hyponatremia; E86.0 Dehydration; E87.5 Hyperkalemia; Z91.14 Patient's other noncompliance with medication regimen; Z79.4 Long term (current) use of insulin; Z82.49 Family history of ischemic heart disease and other diseases of the circulatory system; Z79.1 Long term (current) use of non-steroidal anti-inflammatories (NSAID)
CPT/HCPCS: 36415; 80051; 80053; 82009; 82150; 82565; 82947; 83690; 84100; 84443; 84520; 85025; 99285

== ENCOUNTER 2019-04-10 20:51 | Emergency (ER) | payer BC, OTHER ==
[2019-04-10] MEDS ORDERED: KETOROLAC 30 MG/ML 1 ML VIAL IVP STA (21:13)
[2019-04-10] MEDS ORDERED: SODIUM CHLORIDE 0.9% 1,000 ML IV STA (21:13)
[2019-04-10 21:40] LABS: Basophils % (A) 0 %; Eosinophils # (A) 0.2 k/uL (0-0.7); Eosinophils % (A) 3 %; HGB 13.9 gm/dL (13.0-17.5); Lymphocytes # (A) 2.8 k/uL (1.0-4.8); Lymphocytes % (A) 34 %; MCH 18.3 pg (25.0-35.0); MCHC 30.9 g/dL (31.0-37.0); MCV 59.1 fL (80.0-100.0); Mean Platelet Volume 6.1; Microcytosis Marked; Monocytes # (A) 0.4 k/uL (0-1.0); Monocytes % (A) 4 %; Neutrophils # (A) 4.6 k/uL (1.3-7.7); Neutrophils % (A) 56 %; Platelet Count 324 k/uL (150-450); RDW 14.7 % (11.5-15.5); WBC 8.2 k/uL (3.8-10.6)
[2019-04-10 21:44] LABS: Appearance,Urine Clear (Clear); Bilirubin,Urine Negative (Negative); Blood,Urine Negative (Negative); Color,Urine Colorless; Glucose,Urine (UA) 4+ (Negative); Ketones,Urine Negative (Negative); Leukocyte Esterase,Urine Negative (Negative); Nitrite,Urine Negative (Negative); Protein,Urine Negative (Negative); Specific Gravity,Urine 1.034 (1.001-1.035); Urobilinogen,Urine <2.0 mg/dL (<2.0)
[2019-04-10 21:49] LABS: RBC 7.61 m/uL (4.30-5.90)
[2019-04-10 21:53] LABS: INR 0.9 (<1.2); Partial Thromboplastin Time 24.7 sec (22.0-30.0)
--- NOTE | 2019-04-10 21:55 | XR ---
EXAMINATION TYPE: XR chest 2V DATE OF EXAM: 04/10/2019 COMPARISON: 04/28/2017 HISTORY: Chest pain TECHNIQUE: Frontal and lateral views of the chest are obtained. FINDINGS: There is no focal air space opacity, pleural effusion, or pneumothorax seen. Prominence of the pulmonary arteries is unchanged from the prior of 04/28/2017 and likely incidental although under lying pulmonary arterial hypertension is possible. The cardiac silhouette size is within normal limi ts. The osseous structures are intact. IMPRESSION: No acute cardiopulmonary process.
[2019-04-10 22:08] LABS: ALT 19 U/L (21-72); AST 20 U/L (17-59); Albumin 4.6 g/dL (3.5-5.0); Alkaline Phosphatase 100 U/L (38-126); Anion Gap 11 mmol/L; Blood Urea Nitrogen 16 mg/dL (9-20); Calcium 10.1 mg/dL (8.4-10.2); Carbon Dioxide 25 mmol/L (22-30); Chloride 103 mmol/L (98-107); Glucose 297 mg/dL (74-99); Magnesium 1.7 mg/dL (1.6-2.3); Potassium 4.2 mmol/L (3.5-5.1); Sodium 139 mmol/L (137-145); Total Bilirubin 0.7 mg/dL (0.2-1.3); Total Protein 7.6 g/dL (6.3-8.2)
--- NOTE | 2019-04-10 23:04 | ED ---
Chest Pain HPI - General Chief Complaint: Chest Pain Stated Complaint: Chest pain Time Seen by Provider: 04/10/19 21:02 Source: patient Mode of arrival: ambulatory Limitations: no limitations - History of Present Illness Initial Comments: 23-year-old male patient with past medical history significant for type 1 diabetes, presents to the emergency department today for evaluation of right- sided chest pain. Patient states the pain started a couple of hours ago. States it has been intermittent. He describes as a sharp pain. States when the pain comes on he does feel somewhat short of breath. He denies any cough or hemoptysis. Denies any injury to the chest. Denies any recent travel, leg swelling, calf pain, or history of DVT. Denies any dizziness, weakness, numbness, or tingling with this. Denies any nausea, vomiting, or sweats. Denies any abdominal pain. Patient denies any recent rash, fever, chills, diarrhea, constipation, back pain, hematuria, dysuria, urinary urgency, urinary frequency, headache, visual changes, or any other complaints. - Related Data Home Medications Medication Instructions Recorded Confirmed Insulin Aspart (For Pump) [NovoLOG 0.01 unit SQ-PUMP CONTINUOUS 04/10/19 04/10/19 (For Pump)] Allergies Allergy/AdvReac Type Severity Reaction Status Date / Time No Known Allergies Allergy Verified 04/10/19 21:09 Review of Systems ROS Statement: Those systems with pertinent positive or pertinent negative responses have been documented in the HPI. ROS Other: All systems not noted in ROS Statement are negative. EKG Findings - EKG Comments: EKG Findings:: EKG obtained at 2109 shows normal sinus rhythm with a ventricular rate of 90, PA interval 134, QRS duration 92, QT 350, QTC 428. No evidence of ST elevation or depression. Past Medical History Past Medical History: Diabetes Mellitus, Pneumonia, Thyroid Disorder Additional Past Medical History / Comment(s): IDDM type I-insulin pump, DKA, pt states he is going to be worked up for possible thyroid problem, pneumonia as an infant. History of Any Multi-Drug Resistant Organisms: None Reported Additional Past Surgical History / Comment(s): R neck lymph node removed when patient was 5 y/o; wisdom teeth removal Past Anesthesia/Blood Transfusion Reactions: No Reported Reaction Past Psychological History: No Psychological Hx Reported Smoking Status: Never smoker Past Alcohol Use History: Rare Past Drug Use History: None Reported - Past Family History Father History Unknown: Yes Mother Family Medical History: Hypertension, Thyroid Disorder Additional Family Medical History / Comment(s): depression and anxiety General Exam Limitations: no limitations General appearance: alert, in no apparent distress, other (Physical well-dev eloped, well-nourished adult male patient in no acute distress. Vital signs upon presentation are temperature 98.0F, pulse 84, respirations 16, blood pressure 146/93, pulse ox 100% on room air.) Eye exam: Present: normal appearance, PERRL, EOMI. Absent: scleral icterus, conjunctival injection, periorbital swelling ENT exam: Present: normal exam, normal oropharynx, mucous membranes moist Respiratory exam: Present: normal lung sounds bilaterally. Absent: respiratory distress, wheezes, rales, rhonchi, stridor, chest wall tenderness Cardiovascular Exam: Present: regular rate, normal rhythm, normal heart sounds. Absent: systolic murmur, diastolic murmur, rubs, gallop, clicks GI/Abdominal exam: Present: soft, normal bowel sounds. Absent: distended, tenderness, guarding, rebound, rigid Neurological exam: Present: alert, oriented X3, CN II-XII intact Psychiatric exam: Present: normal affect, normal mood Skin exam: Present: warm, dry, intact, normal color. Absent: rash Course Vital Signs 04/10/19 04/10/19 20:57 23:20 Temperature 98.0 F 98.4 F Pulse Rate 84 71 Respiratory 16 18 Rate Blood Pressure 146/93 119/81 O2 Sat by Pulse 100 100 Oximetry Chest Pain [facility] RADIOLOGY:Two-view x-ray of the chest is obtained. Report was reviewed in its entirety. Impression by Dr. Clifford shows no acute cardiopulmonary process. MDM: 23-year-old male patient presented to the emergency department today for evaluation of intermittent chest pain that was going on for the last couple of hours. Physical examination is unremarkable. Lungs are clear to auscultation with good air movement. Vital signs are within normal ranges. Labs reviewed and are unremarkable. Patient's blood sugar was elevated, recheck the patient's pump was 153 prior to discharge. Chest x-ray showed no acute cardio pulmonary process. EKG showed normal sinus rhythm. I did discuss findings and results with the patient. He is instructed to follow-up with his primary care physician for recheck in 1-2 days. Return parameters were discussed in detail. He verbalizes understanding and agrees with this plan. Disposition Clinical Impression: Chest pain Disposition: HOME SELF-CARE Condition: Good Instructions (If sedation given, give patient instructions): Chest Pain (ED) Additional Instructions: Follow-up through primary care physician for recheck as soon as possible. Return to the emergency department immediately for any new, worsening, or concerning symptoms. Is patient prescribed a controlled substance at d/c from ED?: No Referrals: Radha Dale MD [Primary Care Provider] - 1-2 days Time of Disposition: 23:04
[2019-04-10 23:22] VITALS: BP 119/81; PULSE 71; RESP 18; TEMP 98.4
== END 2019-04-10 23:20 | disposition home or self-care (01) ==
LOC: EC 20:51
DX: R07.9 Chest pain, unspecified (principal); R06.02 Shortness of breath; E10.10 Type 1 diabetes mellitus with ketoacidosis without coma; Z82.49 Family history of ischemic heart disease and other diseases of the circulatory system; Z79.4 Long term (current) use of insulin; Z96.41 Presence of insulin pump (external) (internal)
CPT/HCPCS: 99285; 96374; 96361; 36415; 93005; 80053; 83735; 84484; 85025; 85610; 85730; 81003; 71046; J1885

== ENCOUNTER 2019-04-28 18:28 | Emergency (ER) | payer BC, OTHER ==
[2019-04-28] MEDS ORDERED: SODIUM CHLORIDE 0.9% 2,000 ML IV ONE (18:42)
--- NOTE | 2019-04-28 18:45 | ED ---
General Adult HPI - General Chief complaint: Recheck/Abnormal Lab/Rx Stated complaint: Hyperglycemia Time Seen by Provider: 04/28/19 18:36 Source: patient Mode of arrival: ambulatory Limitations: no limitations - History of Present Illness Initial comments: 23-year-old male patient with past medical history significant for type 1 diabetes mellitus presents to the emergency department today for evaluation of elevated blood sugar. Patient states since around 6 PM last evening he has been having difficulty controlling his blood sugar. States his meter has often been reading high. Patient states he has taken a total 120 units of NovoLog today. Patient states he has been following a strict diet. States he just had his hemoglobin A1c drawn which was 11.1. Patient states he is otherwise feeling well. Denies any dizziness, weakness, chest pain, shortness of breath, abdominal pain, nausea, or vomiting. Denies any numbness or tingling to his ext remities. Patient denies any recent rash, fever, chills, diarrhea, constipation, back pain, dizziness, weakness, hematuria, dysuria, urinary urgency, urinary frequency, headache, visual changes, or any other complaints. - Related Data Home Medications Medication Instructions Recorded Confirmed Insulin Aspart (For Pump) [NovoLOG 0.01 unit SQ-PUMP CONTINUOUS 04/10/19 04/10/19 (For Pump)] Allergies Allergy/AdvReac Type Severity Reaction Status Date / Time No Known Allergies Allergy Verified 04/28/19 18:34 Review of Systems ROS Statement: Those systems with pertinent positive or pertinent negative responses have been documented in the HPI. ROS Other: All systems not noted in ROS Statement are negative. Past Medical History Past Medical History: Diabetes Mellitus, Pneumonia, Thyroid Disorder Additional Past Medical History / Comment(s): IDDM type I-insulin pump, DKA, pt states he is going to be worked up for possible thyroid problem, pneumonia as an infant. History of Any Multi-Drug Resistant Organisms: None Reported Additional Past Surgical History / Comment(s): R neck lymph node removed when patient was 5 y/o; wisdom teeth removal Past Anesthesia/Blood Transfusion Reactions: No Reported Reaction Past Psychological History: No Psychological Hx Reported Smoking Status: Never smoker Past Alcohol Use History: Rare Past Drug Use History: None Reported - Past Family History Father History Unknown: Yes Mother Family Medical History: Hypertension, Thyroid Disorder Additional Family Medical History / Comment(s): depression and anxiety General Exam Limitations: no limitations General appearance: alert, in no apparent distress, other (Physical well- developed, well-nourished adult male patient in no acute distress. Vital signs upon presentation are temperature 98.4F, pulse 94, respiration 16, blood pressure 137/87, pulse ox 98% on room air.) Eye exam: Present: normal appearance, PERRL, EOMI. Absent: scleral icterus, conjunctival injection, periorbital swelling ENT exam: Present: normal exam, normal oropharynx, mucous membranes moist Respiratory exam: Present: normal lung sounds bilaterally. Absent: respiratory distress, wheezes, rales, rhonchi, stridor Cardiovascular Exam: Present: regular rate, normal rhythm, normal heart sounds. Absent: systolic murmur, diastolic murmur, rubs, gallop, clicks GI/Abdominal exam: Present: soft, normal bowel sounds. Absent: distended, tenderness, guarding, rebound, rigid Neurological exam: Present: alert, oriented X3, CN II-XII intact Psychiatric exam: Present: normal affect, normal mood Skin exam: Present: warm, dry, intact, normal color. Absent: rash Course Vital Signs 04/28/19 04/28/19 04/28/19 18:32 19:26 22:03 Temperature 98.4 F 97.9 F 97.1 F L Pulse Rate 94 88 80 Respiratory 16 18 18 Rate Blood Pressure 137/87 142/80 126/93 O2 Sat by Pulse 98 98 100 Oximetry Medical Decision Making - Medical Decision Making 23-year-old male patient with past medical history significant for type 1 diabetes, currently utilizing insulin pump, presented to the emergency department today for evaluation of elevated blood sugar. Upon arrival blood sug ar was 332. Labs are drawn anion gap is 9. Acetone negative. Patient did have 4+ glucose in the urine. Patient has no sign or symptoms of infection. He was given 2 L of normal saline. Upon recheck blood sugar was 230. Patient does feel well at this time. We discharged follow up with his primary care physician for recheck as soon as possible. He is instructed to follow strict diabetic diet. Return parameters were discussed in detail. He verbalizes understanding and agrees this plan. - Lab Data Result diagrams: 04/28/19 19:00 04/28/19 19:00 Lab Results 04/28/19 04/28/19 04/28/19 Range/Units 19:00 19:00 19:03 WBC 8.9 (3.8-10.6) k/uL RBC 7.02 H (4.30-5.90) m/uL Hgb 13.0 (13.0-17.5) gm/dL Hct 42.8 (39.0-53.0) % MCV 60.9 L (80.0-100.0) fL MCH 18.5 L (25.0-35.0) pg MCHC 30.3 L (31.0-37.0) g/dL RDW 15.4 (11.5-15.5) % Plt Count 310 (150-450) k/uL Neutrophils % 66 % Lymphocytes % 26 % Monocytes % 4 % Eosinophils % 2 % Basophils % 0 % Neutrophils # 5.8 (1.3-7.7) k/uL Lymphocytes # 2.3 (1.0-4.8) k/uL Monocytes # 0.4 (0-1.0) k/uL Eosinophils # 0.2 (0-0.7) k/uL Basophils # 0.0 (0-0.2) k/uL Hypochromasia Marked Microcytosis Marked Sodium 139 (137-145) mmol/L Potassium 4.5 (3.5-5.1) mmol/L Chloride 102 (98-107) mmol/L Carbon Dioxide 28 (22-30) mmol/L Anion Gap 9 mmol/L BUN 14 (9-20) mg/dL Creatinine 0.66 (0.66-1.25) mg/dL Est GFR (CKD-EPI)AfAm >90 (>60 ml/min/1.73 sqM) Est GFR (CKD-EPI)NonAf >90 (>60 ml/min/1.73 sqM) Glucose 332 H (74-99) mg/dL POC Glucose (mg/dL) 298 H (75-99) mg/dL POC Glu Custodian Supervisor ID Shahzad, Sharri Calcium 9.8 (8.4-10.2) mg/dL Total Bilirubin 0.6 (0.2-1.3) mg/dL AST 18 (17-59) U/L ALT 21 (21-72) U/L Alkaline Phosphatase 95 (38-126) U/L Total Protein 7.1 (6.3-8.2) g/dL Albumin 4.2 (3.5-5.0) g/dL Urine Color Urine Appearance (Clear) Urine pH (5.0-8.0) Ur Specific [place] (1.001-1.035) Urine Protein (Negative) Urine Glucose (UA) (Negative) Urine Ketones (Negative) Urine Blood (Negative) Urine Nitrite (Negative) Urine Bilirubin (Negative) Urine Urobilinogen (<2.0) mg/dL Ur Leukocyte Esterase (Negative) Acetone, Qual Negative (Negative) 04/28/19 04/28/19 04/28/19 Range/Units 19:23 20:54 21:43 WBC (3.8-10.6) k/uL RBC (4.30-5.90) m/uL Hgb (13.0-17.5) gm/dL Hct (39.0-53.0) % MCV (80.0-100.0) fL MCH (25.0-35.0) pg MCHC (31.0-37.0) g/dL RDW (11.5-15.5) % Plt Count (150-450) k/uL Neutrophils % % Lymphocytes % % Monocytes % % Eosinophils % % Basophils % % Neutrophils # (1.3-7.7) k/uL Lymphocytes # (1.0-4.8) k/uL Monocytes # (0-1.0) k/uL Eosinophils # (0-0.7) k/uL Basophils # (0-0.2) k/uL Hypochromasia Microcytosis Sodium (137-145) mmol/L Potassium (3.5-5.1) mmol/L Chloride (98-107) mmol/L Carbon Dioxide (22-30) mmol/L Anion Gap mmol/L BUN (9-20) mg/dL Creatinine (0.66-1.25) mg/dL Est GFR (CKD-EPI)AfAm (>60 ml/min/1.73 sqM) Est GFR (CKD-EPI)NonAf (>60 ml/min/1.73 sqM) Glucose (74-99) mg/dL POC Glucose (mg/dL) 249 H 230 H (75-99) mg/dL POC Glu Custodian Supervisor Rona Luis Ashley Calcium (8.4-10.2) mg/dL Total Bilirubin (0.2-1.3) mg/dL AST (17-59) U/L ALT (21-72) U/L Alkaline Phosphatase (38-126) U/L Total Protein (6.3-8.2) g/dL Albumin (3.5-5.0) g/dL Urine Color Light Yellow Urine Appearance Clear (Clear) Urine pH 6.5 (5.0-8.0) Ur Specific [place] 1.033 (1.001-1.035) Urine Protein Negative (Negative) Urine Glucose (UA) 4+ H (Negative) Urine Ketones Trace H (Negative) Urine Blood Negative (Negative) Urine Nitrite Negative (Negative) Urine Bilirubin Negative (Negative) Urine Urobilinogen <2.0 (<2.0) mg/dL Ur Leukocyte Esterase Negative (Negative) Acetone, Qual (Negative) Disposition Clinical Impression: Hyperglycemia Disposition: HOME SELF-CARE Condition: Good Instructions (If sedation given, give patient instructions): Diabetic Hyperglycemia (ED) Additional Instructions: Increase fluids. Follow strict diabetic diet. Follow-up with your primary care physician for recheck as soon as possible. Return to the emergency department immediately for any new, worsening, or concerning symptoms. Is patient prescribed a controlled substance at d/c from ED?: No Referrals: Radha Dale MD [Primary Care Provider] - 1-2 days Time of Disposition: 21:51
[2019-04-28 19:16] LABS: Basophils % (A) 0 %; Eosinophils # (A) 0.2 k/uL (0-0.7); Eosinophils % (A) 2 %; HCT 42.8 % (39.0-53.0); Hypochromasia Marked; Lymphocytes # (A) 2.3 k/uL (1.0-4.8); Lymphocytes % (A) 26 %; MCH 18.5 pg (25.0-35.0); MCHC 30.3 g/dL (31.0-37.0); MCV 60.9 fL (80.0-100.0); Mean Platelet Volume 6.3; Microcytosis Marked; Monocytes # (A) 0.4 k/uL (0-1.0); Monocytes % (A) 4 %; Neutrophils # (A) 5.8 k/uL (1.3-7.7); Neutrophils % (A) 66 %; Platelet Count 310 k/uL (150-450); RDW 15.4 % (11.5-15.5); WBC 8.9 k/uL (3.8-10.6)
[2019-04-28 19:17] LABS: RBC 7.02 m/uL (4.30-5.90)
[2019-04-28 19:23] LABS: Glucose,Whole Blood 298 mg/dL (75-99)
[2019-04-28 19:25] LABS: ALT 21 U/L (21-72); AST 18 U/L (17-59); African American GFR (CKD) >90 (>60 ml/min/1.73 sqM); Albumin 4.2 g/dL (3.5-5.0); Alkaline Phosphatase 95 U/L (38-126); Anion Gap 9 mmol/L; Blood Urea Nitrogen 14 mg/dL (9-20); Calcium 9.8 mg/dL (8.4-10.2); Carbon Dioxide 28 mmol/L (22-30); Chloride 102 mmol/L (98-107); Glucose 332 mg/dL (74-99); Potassium 4.5 mmol/L (3.5-5.1); Sodium 139 mmol/L (137-145); Total Bilirubin 0.6 mg/dL (0.2-1.3); Total Protein 7.1 g/dL (6.3-8.2)
[2019-04-28 19:27] VITALS: RESP 18
[2019-04-28 19:30] LABS: Appearance,Urine Clear (Clear); Bilirubin,Urine Negative (Negative); Blood,Urine Negative (Negative); Color,Urine Light Yellow; Glucose,Urine (UA) 4+ (Negative); Ketones,Urine Trace (Negative); Leukocyte Esterase,Urine Negative (Negative); Nitrite,Urine Negative (Negative); PH, Urine 6.5 (5.0-8.0); Protein,Urine Negative (Negative); Specific Gravity,Urine 1.033 (1.001-1.035); Urobilinogen,Urine <2.0 mg/dL (<2.0)
[2019-04-28 20:58] LABS: Glucose,Whole Blood 249 mg/dL (75-99)
[2019-04-28 21:55] LABS: Glucose,Whole Blood 230 mg/dL (75-99)
[2019-04-28 22:04] VITALS: BP 126/93; PULSE 80; TEMP 97.1
== END 2019-04-28 22:05 | disposition home or self-care (01) ==
LOC: EC 18:28
DX: E10.65 Type 1 diabetes mellitus with hyperglycemia (principal); Z79.4 Long term (current) use of insulin
CPT/HCPCS: 36415; 80053; 81003; 82009; 85025; 96360; 96361; 99283

== ENCOUNTER 2019-09-04 16:51 | Emergency (ER) | payer BC, OTHER ==
[2019-09-04 17:29] VITALS: RESP 18
--- NOTE | 2019-09-04 18:04 | ED ---
General Adult HPI - General Source: patient, RN notes reviewed Mode of arrival: ambulatory Limitations: no limitations <Juan Marinelli - Last Filed: 09/04/19 19:16> <Arline De La Cruz - Last Filed: 09/06/19 16:47> - General Chief complaint: Extremity Injury, Upper Stated complaint: rt elbow injury Time Seen by Provider: 09/04/19 17:38 - History of Present Illness Initial comments: 23-year-old male with a past medical history of type I IDDM, pneumonia, thyroid disorder presents to the emergency department for a chief complaint of right arm pain. States that 2 days ago he was wrenching on something when he tripped and fell forward onto the concrete on his right forearm. States that he had negative x-rays of the elbow that after he left the hospital noticed the pain extended further distally in his forearm and this was not x-rayed. States that it has continued to cause him pain. Patient has had Motrin and then wrapping it. He has also been using a sling. Patient thinks he needs an x-ray of his forearm.Patient has no other complaints at this time including shortness of breath, chest pain, abdominal pain, nausea or vomiting, headache, or visual changes. (Juan Marinelli) - Related Data Home Medications Medication Instructions Recorded Confirmed Insulin Aspart (For Pump) [NovoLOG 0.01 unit SQ-PUMP CONTINUOUS 04/10/19 04/10/19 (For Pump)] Allergies Allergy/AdvReac Type Severity Reaction Status Date / Time No Known Allergies Allergy Verified 09/04/19 17:29 Review of Systems ROS Other: All systems not noted in ROS Statement are negative. <Juan Marinelli - Last Filed: 09/04/19 19:16> ROS Other: All systems not noted in ROS Statement are negative. <Arline De La Cruz - Last Filed: 09/06/19 16:47> ROS Statement: Those systems with pertinent positive or pertinent negative responses have been documented in the HPI. Past Medical History Past Medical History: Diabetes Mellitus, Pneumonia, Thyroid Disorder Additional Past Medical History / Comment(s): IDDM type I-insulin pump, DKA, pt states he is going to be worked up for possible thyroid problem, pneumonia as an . History of Any Multi-Drug Resistant Organisms: None Reported Additional Past Surgical History / Comment(s): R neck lymph node removed when patient was 5 y/o; wisdom teeth removal Past Anesthesia/Blood Transfusion Reactions: No Reported Reaction Past Psychological History: No Psychological Hx Reported Smoking Status: Never smoker Past Alcohol Use History: Rare Past Drug Use History: None Reported - Past Family History Father History Unknown: Yes Mother Family Medical History: Hypertension, Thyroid Disorder Additional Family Medical History / Comment(s): depression and anxiety <Juan Marinelli P - Last Filed: 09/04/19 19:16> General Exam Limitations: no limitations General appearance: alert, in no apparent distress Head exam: Present: atraumatic, normocephalic, normal inspection Eye exam: Present: normal appearance, PERRL, EOMI. Absent: scleral icterus, conjunctival injection, periorbital swelling ENT exam: Present: normal exam, mucous membranes moist Neck exam: Present: normal inspection, full ROM. Absent: tenderness, meningismus, lymphadenopathy Respiratory exam: Present: normal lung sounds bilaterally. Absent: respiratory distress, wheezes, rales, rhonchi, stridor Cardiovascular Exam: Present: regular rate, normal rhythm, normal heart sounds. Absent: systolic murmur, diastolic murmur, rubs, gallop, clicks Extremities exam: Present: tenderness (Generalized tenderness of the right maximal forearm without any erythema. Patient does have tenderness over the radial head.), normal capillary refill (Manny refill less than 2 seconds, radial pulse 2+ in the right upper extremity.), joint swelling (Mild edema noted of the right forearm.). Absent: full ROM (Patient is able to flex and extend the right elbow and right wrist but this is limited due to pain.), pedal edema, calf tenderness <Juan Marinelli P - Last Filed: 09/04/19 19:16> Course Vital Signs 09/04/19 09/04/19 17:27 19:44 Temperature 97.8 F 98.7 F Pulse Rate 88 97 Respiratory 18 18 Rate Blood Pressure 137/85 140/97 O2 Sat by Pulse 100 97 Oximetry Procedures - Orthopedic Splinting/Casting Injury #1 Side: right Upper Extremity Injury Location: long arm Upper Extremity Immobilizer: posterior splint <Juan Marinelli P - Last Filed: 09/04/19 19:16> - Orthopedic Splinting/Casting Injury #1 Additional Comments: NV status intact (Juan Marinelli) Medical Decision Making <Juan Marinelli - Last Filed: 09/04/19 19:16> <Arline De La Cruz - Last Filed: 09/06/19 16:47> - Medical Decision Making Exam reveals some limited range of motion of the right elbow secondary to pain. There is mild edema of the right forearm. Sensation is intact in the right upper extremity. Compartments are soft. There is no erythema. X-ray of the right elbow shows a radial head chip fracture without displacement. Patient was placed in a long arm posterior splint. Patient already has a sling with him. He will take Motrin for pain. He was given a Tylenol 3 for breakthrough pain and acted not to drive while taking this. He will follow up with orthopedics on Thursday. Referral was given. He will return here if he has any worsening symptoms. (Juan Marinelli) I was available for consultation in the emergency department. The history and physical exam were done by the midlevel provider. I was consulted for this patients care. I reviewed the case with the midlevel provider and based on their presentation of the patient, I agree with the assessment, medical decision making and plan of care as documented. Chart was dictated using [employer] dictation software. Attempts were made to correct any dictation errors however some typographical errors may persist. (Arline De La Cruz) Disposition Is patient prescribed a controlled substance at d/c from ED?: No Time of Disposition: 19:19 <Juan Marinelli - Last Filed: 09/04/19 19:16> <Arline De La Cruz - Last Filed: 09/06/19 16:47> Clinical Impression: Fracture of radial head, right, closed Disposition: HOME SELF-CARE Condition: Good Instructions (If sedation given, give patient instructions): Elbow Fracture (ED) Additional Instructions: Please take Motrin for pain. If pain is severe take Tylenol 3. Ice the area. Follow-up with orthopedics tomorrow. Return to the ER if you have any worsening symptoms. Referrals: Radha Dale MD [Primary Care Provider] - 1-2 days Augustine Pinon MD [Medical Doctor] - 1-2 days
--- NOTE | 2019-09-04 18:24 | XR ---
EXAMINATION TYPE: XR elbow complete RT DATE OF EXAM: 09/04/2019 COMPARISON: NONE HISTORY: Pain TECHNIQUE: 3 views FINDINGS: There is nondisplaced intra-articular chip fracture of the lateral aspect of the radial hea d. There is posterior soft tissue swelling. There is no dislocation. IMPRESSION: Radial head chip fracture without displacement.
--- NOTE | 2019-09-04 18:26 | XR ---
EXAMINATION TYPE: XR forearm RT DATE OF EXAM: 09/04/2019 COMPARISON: NONE HISTORY: Pain TECHNIQUE: 2 views. I see no displaced fracture of the radius and ulna. Carpal bones are intact. Elbow joint spaces are n ormal. There is no dislocation. IMPRESSION: No displaced fracture seen.
[2019-09-04] MEDS ORDERED: HYDROcodone/APAP 5-325MG 1 EACH TAB PO STA (18:58)
[2019-09-04] MEDS ORDERED: ACET/COD 300 MG/30 MG STARTER PACK 6 TAB BTL PO STA (19:36)
[2019-09-04 19:45] VITALS: BP 140/97; PULSE 97; TEMP 98.7
== END 2019-09-04 19:45 | disposition home or self-care (01) ==
LOC: EC 16:51
DX: S52.124A Nondisplaced fracture of head of right radius, initial encounter for closed fracture (principal); E10.9 Type 1 diabetes mellitus without complications; E07.9 Disorder of thyroid, unspecified; Z79.4 Long term (current) use of insulin; Z96.41 Presence of insulin pump (external) (internal); W01.0XXA Fall on same level from slipping, tripping and stumbling without subsequent striking against object, initial encounter; Y93.89 Activity, other specified
CPT/HCPCS: 29105; 99283

== ENCOUNTER → 2020-06-25 | Outpatient (CLI) | payer OTHER ==
--- NOTE | 2020-06-25 08:25 | CT ---
EXAMINATION TYPE: CT elbow RT wo con DATE OF EXAM: 06/25/2020 COMPARISON: 09/04/2019 plain film radiographs of the right elbow HISTORY: Pain in right elbow CT DLP: 333 mGycm Automated exposure control for dose reduction was used. Unenhanced CT of the right elbow was performe d in the coronal axial and sagittal planes. 3-D reconstruction was obtained at a separate workstation . FINDINGS: There is nonacute fracture noted to involve the radial head with partial solid union noted. The fract ure component is depressed by approximately 1 mm. There are 2 or 3 small chip components noted measur ing up to 4.6 mm. No acute fractures are seen. Small joint effusion is identified. No soft tissue mas ses seen. No evidence of bony destructive process. IMPRESSION: There is nonacute fracture noted to involve the radial head with partial solid union noted. 2 or 3 SM ALL CHIP FRACTURES ARE NOTED LOOSE BODIES.
== END | disposition home or self-care (01) ==
LOC: RADCTMAIN 06:41
PROVIDERS: ATTEND Orthopaedic Surgery
DX: S52.121A Displaced fracture of head of right radius, initial encounter for closed fracture (principal)

== ENCOUNTER 2021-10-04 13:50 | Emergency (ER) | payer BC, OTHER ==
[2021-10-04 14:33] VITALS: TEMP 98.1
[2021-10-04] MEDS ORDERED: SODIUM CHLORIDE 0.9% 50 ML IVPB ONE (16:15)
[2021-10-04] MEDS ORDERED: CASIRIVIMAB (REGN10933) (EUA) 600 MG, IMDEVIMAB (REGN10987) (EUA) 600 MG in SODIUM CHLO... IVPB ONE (16:30)
--- NOTE | 2021-10-04 16:48 | ED ---
General Adult HPI - General Chief complaint: Upper Respiratory Infection Stated complaint: Cough, Covid exposure Time Seen by Provider: 10/04/21 15:37 Source: patient Mode of arrival: ambulatory Limitations: no limitations - History of Present Illness Initial comments: 25-year-old male with a past medical history of IDDM type I presents to the emergency room for a chief complaint of cough. Patient developed a cough yesterday. No shortness of breath. States his sugars have been controlled. Pt was exposed to COVID-19 5 days ago. He has not had any fevers.Patient has no other complaints at this time including shortness of breath, chest pain, abdominal pain, nausea or vomiting, headache, or visual changes. - Related Data Home Medications Medication Instructions Recorded Confirmed Insulin Aspart (For Pump) [NovoLOG 0.01 unit SQ-PUMP CONTINUOUS 04/10/19 04/10/19 (For Pump)] Allergies Allergy/AdvReac Type Severity Reaction Status Date / Time No Known Allergies Allergy Verified 10/04/21 14:32 Review of Systems ROS Statement: Those systems with pertinent positive or pertinent negative responses have been documented in the HPI. ROS Other: All systems not noted in ROS Statement are negative. Past Medical History Past Medical History: Diabetes Mellitus, Pneumonia, Thyroid Disorder Additional Past Medical History / Comment(s): IDDM type I-insulin pump, DKA, pt states he is going to be worked up for possible thyroid problem, pneumonia as an infant. History of Any Multi-Drug Resistant Organisms: None Reported Additional Past Surgical History / Comment(s): R neck lymph node removed when patient was 5 y/o; wisdom teeth removal Past Anesthesia/Blood Transfusion Reactions: No Reported Reaction Past Psychological History: No Psychological Hx Reported Smoking Status: Never smoker Past Alcohol Use History: Rare Past Drug Use History: None Reported - Past Family History Father History Unknown: Yes Mother Family Medical History: Hypertension, Thyroid Disorder Additional Family Medical History / Comment(s): depression and anxiety General Exam Limitations: no limitations General appearance: alert, in no apparent distress Head exam: Present: atraumatic Eye exam: Present: normal appearance, PERRL, EOMI. Absent: scleral icterus, conjunctival injection ENT exam: Present: normal exam, mucous membranes moist Neck exam: Present: normal inspection, full ROM. Absent: tenderness Respiratory exam: Present: normal lung sounds bilaterally. Absent: respiratory distress, wheezes Cardiovascular Exam: Present: regular rate, normal rhythm, normal heart sounds GI/Abdominal exam: Present: soft, normal bowel sounds. Absent: distended, tenderness Neurological exam: Present: alert Course Vital Signs 10/04/21 14:30 Temperature 98.1 F Pulse Rate 64 Respiratory 20 Rate Blood Pressure 132/85 O2 Sat by Pulse 97 Oximetry Medical Decision Making - Medical Decision Making Vitals are stable. Patient is well appearing. Patient did test positive for COVID-19. Patient was given antibodies based on his BMI as well as his history of diabetes. He was given strict return parameters. He will follow-up with his doctor. - Lab Data Lab Results 10/04/21 Range/Units 14:37 Coronavirus (PCR) Detected A (Not Detectd) Disposition Clinical Impression: COVID-19 Disposition: HOME SELF-CARE Condition: Good Instructions (If sedation given, give patient instructions): Coronavirus Disease 2019 (COVID-19) Additional Instructions: Please follow up with your doctor in 1-2 days. Return to the ER for any worsening symptoms. Is patient prescribed a controlled substance at d/c from ED?: No Referrals: Radha Dale MD [Primary Care Provider] - 1-2 days Time of Disposition: 16:43
[2021-10-04 18:34] VITALS: BP 130/88; PULSE 89; RESP 18
== END 2021-10-04 18:39 | disposition home or self-care (01) ==
LOC: EC 13:50
DX: U07.1 COVID-19 (principal); E10.10 Type 1 diabetes mellitus with ketoacidosis without coma
CPT/HCPCS: 87635; 99283; Q0243

== ENCOUNTER → 2022-02-27 | Outpatient (CLI) | payer BC, OTHER ==
--- NOTE | 2022-02-27 11:04 | XR ---
EXAMINATION TYPE: XR chest 2V DATE OF EXAM: 02/27/2022 COMPARISON: Chest x-ray dated 04/10/2019 HISTORY: Chest pain TECHNIQUE: Frontal and lateral views of the chest are obtained. FINDINGS: There is no focal air space opacity, pleural effusion, or pneumothorax seen. The cardiac silhouette size is within normal limits. The osseous structures are intact. IMPRESSION: No acute cardiopulmonary process.
== END | disposition home or self-care (01) ==
LOC: RADXRYALE 10:43
PROVIDERS: ATTEND Internal Medicine
DX: R07.9 Chest pain, unspecified (principal)
CPT/HCPCS: 71046

== ENCOUNTER 2022-07-14 10:25 | Emergency (ER) | payer BC, OTHER ==
[2022-07-14 10:42] VITALS: RESP 16; TEMP 99
--- NOTE | 2022-07-14 11:07 | ED ---
General Adult HPI - General Chief complaint: Upper Respiratory Infection Stated complaint: Covid+, cough, back pain Time Seen by Provider: 07/14/22 10:43 Source: patient Mode of arrival: ambulatory Limitations: no limitations - History of Present Illness Initial comments: Dictation was produced using [employer] dictation software. please excuse any gra mmatical, word or spelling errors. Chief Complaint: 26-year-old male presents emergency prior for URI symptoms History of Present Illness: 26-year-old male who presents with URI symptoms for the last 48 hours. Patient has history of type 1 diabetes. He is insulin- dependent. Patient states he's been having dry cough, chills and body aches. Patient denies any shortness of breath. No nausea vomiting diarrhea. The ROS documented in this emergency department record has been reviewed and confirmed by me. Those systems with pertinent positive or negative responses have been documented in the HPI. All other systems are other negative and/or noncontributory. PHYSICAL EXAM: General Impression: Alert and oriented x3, not in acute distress HEENT: Normocephalic atraumatic, extra-ocular movements intact, pupils equal and reactive to light bilaterally, mucous membranes moist. Cardiovascular: Heart regular rate and rhythm Chest: Able to complete full sentences, no retractions, no tachypnea, clear to auscultation bilaterally Abdomen: abdomen soft, non-tender, non-distended, no organomegaly Musculoskeletal: Pulses present and equal in all extremities, no peripheral edema Motor: no focal deficits noted Neurological: CN II-XII grossly intact, no focal motor or sensory deficits noted Skin: Intact with no visualized rashes Psych: Normal affect and mood ED course: 26-year-old male presents emergency department for URI type symptoms. Patient requesting COVID-19 test. All signs upon arrival are within acceptable limits. Is not hypoxic. His been symptomatic for less than 5 days. Patient is considered moderate to high risk given history of insulin-dependent diabetes. Physical examination is benign. COVID-19 test is positive. Patient given prescription for antivirals to treat COVID-19. reevaluated at bedside at 1155am. found to be in stable medical condition. prescription provided for Paxlovid - Related Data Home Medications Medication Instructions Recorded Confirmed Insulin Aspart (For Pump) [NovoLOG 0.01 unit SQ-PUMP CONTINUOUS 04/10/19 04/10/19 (For Pump)] Previous Rx's Medication Instructions Recorded Nirmatrelvir/Ritonavir [Paxlovid 1 each PO BID 5 Days #10 tab 07/14/22 2X150 mg-100 mg (Eua)] Allergies Allergy/AdvReac Type Severity Reaction Status Date / Time No Known Allergies Allergy Verified 07/14/22 10:41 Review of Systems ROS Statement: Those systems with pertinent positive or pertinent negative responses have been documented in the HPI. ROS Other: All systems not noted in ROS Statement are negative. Past Medical History Past Medical History: Diabetes Mellitus, Pneumonia, Thyroid Disorder Additional Past Medical History / Comment(s): IDDM type I-insulin pump, DKA, pt states he is going to be worked up for possible thyroid problem, pneumonia as an . History of Any Multi-Drug Resistant Organisms: None Reported Additional Past Surgical History / Comment(s): R neck lymph node removed when patient was 5 y/o; wisdom teeth removal Past Anesthesia/Blood Transfusion Reactions: No Reported Reaction Past Psychological History: No Psychological Hx Reported Smoking Status: Never smoker Past Alcohol Use History: Rare Past Drug Use History: None Reported - Past Family History Father History Unknown: Yes Mother Family Medical History: Hypertension, Thyroid Disorder Additional Family Medical History / Comment(s): depression and anxiety General Exam Limitations: no limitations Course Vital Signs 07/14/22 07/14/22 10:39 10:49 Temperature 99 F Pulse Rate 95 Respiratory 16 16 Rate Blood Pressure 146/79 O2 Sat by Pulse 98 Oximetry Medical Decision Making - Lab Data Lab Results 07/14/22 Range/Units 10:45 Influenza Type A (PCR) Not Detected (Not Detectd) Influenza Type B (PCR) Not Detected (Not Detectd) RSV (PCR) Not Detected (Not Detectd) SARS-CoV-2 (PCR) Detected A (Not Detectd) Disposition Clinical Impression: Coronavirus infection Disposition: HOME SELF-CARE Condition: Good Instructions (If sedation given, give patient instructions): Coronavirus Disease 2019 (COVID-19) Prescriptions: Nirmatrelvir/Ritonavir [Paxlovid 2X150 mg-100 mg (Eua)] 1 each PO BID 5 Days #10 tab Is patient prescribed a controlled substance at d/c from ED?: No Referrals: Radha Dale MD [Primary Care Provider] - 1-2 days Time of Disposition: 11:53
[2022-07-14 12:05] VITALS: BP 124/77; PULSE 75
== END 2022-07-14 12:05 | disposition home or self-care (01) ==
LOC: EC 10:25
DX: U07.1 COVID-19 (principal); E11.9 Type 2 diabetes mellitus without complications
CPT/HCPCS: 87636; 99283